=== PATIENT | female | born 1995 | race Hispanic/Latino ===

== ENCOUNTER 2021-06-27 15:20 | Day surgery (SDC) | payer BC, OTHER ==
--- OUTSIDE RECORDS SUMMARY | 2021-06-27 15:22 | XMS REPORT | Continuity of Care Document ---
:1995 Author Organization [facility] t Address [address] [place] [address] [address] [place] [address] Care Team Providers Name Role Phone Unavailable Unavailable Unavailable Problems This patient has no known problems. Allergies, Adverse Reactions, Alerts This patient has no known allergies or adverse reactions. Medications This patient has no known medications. Procedures This patient has no known procedures. Results This patient has no known results.
[2021-06-27 16:57] LABS: Absolute Lymphocytes (CBC) 1.9 K/uL (0.7-4.9); Basophils % 0.4 % (0-1.3); MPV 9.8 fL (7.6-11.3); RBC Red Blood Cell Count 4.85 M/uL (3.86-4.86)
[2021-06-27 17:06] LABS: Urine Appearance TURBID (Clear); Urine Blood 3+ (Negative); Urine Color Red (Yellow); Urine Glucose NEGATIVE (Negative); Urine Protein 2+ (Negative)
[2021-06-27 17:09] LABS: Urine Microscopic Reflex ORDER UMIC
--- NOTE | 2021-06-27 17:15 | RAD REPORT ---
EXAM DESCRIPTION: US - Transvaginal OB - 06/27/2021 5:05 pm CLINICAL HISTORY: VAGINAL BLEEDING COMPARISON: OB Complete dated 06/11/2017 FINDINGS: No IUP identified. The endometrial stripe measures 14 millimeters and is thickened. There is some fluid in the cervix and mild free fluid in the cul-de-sac. The right ovary is volume of 9.7 c c. The left ovary is volume of 6.1 cc. Vascular flow is present bilaterally. No adnexal masses. IMPRESSION: No IUP identified. Therefore, cannot exclude early normal , failed first trimes ter , or early ectopic. Bilateral ovarian blood flow is present.
[2021-06-27 17:37] LABS: Urine Bacteria >50 /HPF (<20); Urine RBC LOADED /HPF (NONE SEEN)
[2021-06-27 17:41] LABS: Urine Bilirubin 1+ (Negative)
[2021-06-27 17:42] LABS: BUN Blood Urea Nitrogen 8 mg/dL (7-18); Bicarbonate 25 mmol/L (21-32); Glucose Level 81 mg/dL (74-106); HCG, Quantitative 3299 mIU/mL (1-3); Potassium 3.8 mmol/L (3.5-5.1); Sodium Level 141 mmol/L (136-145)
--- NOTE | 2021-06-27 19:39 | EDPHYS ---
Physician Documentation [facility] Name: Rhoda Hunter Age: 25 yrs Sex: Female : 1995 Arrival Date: 06/27/2021 Time: 15:21 Bed Ultrasound Private MD: Rashid Liriano B ED Physician Alicia Bartlett HPI: 06/27 19:47 This 25 yrs old Female presents to ER via Wheelchair with complaints of jr8 Vaginal Bleeding, + Preg <12wks, Abdominal Cramping. 19:47 This is a 25-year-old female patient that presented to the emergency room for vaginal jr8 bleeding and cramping. Patient stated that she has had mild bleeding for couple weeks now that has not progressed. Mother patient stated that she should take a test which she did at home and was found to be positive. Patient started having increased pain to the right side the past couple days. Was worried that she may have ectopic so came in for further evaluation. This is patient's second . G2, L1. 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 - Social history:: Smoking status: Reported history of juuling and/or vaping. ROS: 19:47 Eyes: Negative for injury, pain, redness, and discharge, ENT: Negative for injury, jr8 pain, and discharge, Neck: Negative for injury, pain, and swelling, Cardiovascular: Negative for chest pain, palpitations, and edema, Respiratory: Negative for shortness of breath, cough, wheezing, and pleuritic chest pain, Back: Negative for injury and pain, MS/Extremity: Negative for injury and deformity, Skin: Negative for injury, rash, and discoloration, Neuro: Negative for headache, weakness, numbness, tingling, and seizure. 19:47 Abdomen/GI: Positive for abdominal cramps, Negative for nausea, vomiting, and diarrhea. 19:47 : Positive for vaginal bleeding, missed period. Exam: 19:47 Constitutional: This is a well developed, well nourished patient who is awake, alert, jr8 and in no acute distress. Cardiovascular: Regular rate and rhythm with a normal S1 and S2. No gallops, murmurs, or rubs. Normal PMI, no JVD. No pulse deficits. Respiratory: Lungs have equal breath sounds bilaterally, clear to auscultation and percussion. No rales, rhonchi or wheezes noted. No increased work of breathing, no retractions or nasal flaring. Abdomen/GI: Soft, non-tender, with normal bowel sounds. No distension or tympany. No guarding or rebound. No evidence of tenderness throughout. Back: No spinal tenderness. No costovertebral tenderness. Full range of motion. Skin: Warm, dry with normal turgor. Normal color with no rashes, no lesions, and no evidence of cellulitis. MS/ Extremity: Pulses equal, no cyanosis. Neurovascular intact. Full, normal range of motion. Neuro: Awake and alert, GCS 15, oriented to person, place, time, and situation. Cranial nerves II-XII grossly intact. Motor strength 5/5 in all extremities. Sensory grossly intact. Cerebellar exam normal. Normal gait. Vital Signs: 15:44 BP 130 / 58; Pulse 65; Resp 18; Temp 97.4(TE); Pulse Ox 100% on R/A; Weight 93.89 kg tw2 (R); Height 5 ft. 3 in. (160.02 cm) (R); Pain 4/10; 18:10 BP 125 / 77; Pulse 64; Resp 20; Pulse Ox 100% on R/A; kh1 15:44 Body Mass Index 36.67 (93.89 kg, 160.02 cm) tw2 MDM: 17:43 Patient medically screened. jr8 19:53 Data reviewed: vital signs, nurses notes, lab test result(s), radiologic studies, jr8 ultrasound. Data interpreted: Pulse oximetry: on room air is 100 %. Interpretation: normal. Counseling: I had a detailed discussion with the patient and/or guardian regarding: the historical points, exam findings, and any diagnostic results supporting the discharge/admit diagnosis, lab results, radiology results, the need for outpatient follow up, an OB/Gyne specialist. ED course: Discussed with patient that at this time there is no clear picture as to whether she is early IUP versus ectopic versus chemical versus complete AB. Need to trend her hCG over the next 48 hours. To see her OCEANOGRAPHER ASSISTANT on Friday for redraw if she cannot get into her OB GEN on Friday that she needs to come back to emergency room for reevaluation or redraw. In between that if her pain were to increase or she were to start hemorrhaging to come back immediately to the emergency room. Patient with a plan at this time will follow up and/or come back otherwise.. 06/27 16:25 Order name: UA bd 06/27 16:26 Order name: Abo/rh Typing; Complete Time: 18:39 kb 06/27 16:26 Order name: Basic Metabolic Panel; Complete Time: 18:39 kb 06/27 16:26 Order name: CBC with Diff; Complete Time: 18:39 kb 06/27 16:26 Order name: Quantitative Hcg; Complete Time: 18:39 kb 06/27 16:26 Order name: Urinalysis; Complete Time: 18:39 EDMS 06/27 16:00 Order name: Urine Dipstick-Ancillary (obtain specimen); Complete Time: 16:31 kb 06/27 16:00 Order name: Urine Test (obtain specimen); Complete Time: 16:31 kb 06/27 16:26 Order name: IV Saline Lock; Complete Time: 16:36 kb 06/27 16:26 Order name: Labs collected and sent; Complete Time: 16:36 kb 06/27 16:26 Order name: NPO; Complete Time: 16:31 kb 06/27 16:26 Order name: US Transvaginal Ob; Complete Time: 17:20 kb 06/27 17:11 Order name: Urine Microscopic Only; Complete Time: 18:39 EDMS 06/27 17:38 Order name: Urine Culture EDMS Administered Medications: No medications were administered Disposition: 06/28 07:05 Co-signature as Attending Physician, Alicia Bartlett MD I agree with the assessment and sp3 plan of care. Disposition Summary: 06/27/21 19:39 Discharge Ordered Location: Home jr8 Problem: new jr8 Symptoms: have improved jr8 Condition: Stable jr8 Diagnosis - Threatened jr8 Followup: jr8 - With: Rashid Liriano MD - When: 48 Hours - Reason: Recheck today's complaints, Continuance of care, Repeat Beta-HCG (48 Hours), Re-evaluation by your physician Discharge Instructions: - Discharge Summary Sheet jr8 - Ectopic jr8 - Threatened Miscarriage jr8 Forms: - Medication Reconciliation Form jr8 - Thank You Letter jr8 - Antibiotic Education jr8 - Prescription Opioid Use jr8 Prescriptions: - Macrobid 100 mg Oral Capsule - take 1 capsule by ORAL route every 12 hours for 7 days; 14 capsule; Refills: 0, jr8 Product Selection Permitted Signatures: Dispatcher [employer] EDMS Jolly Hernandez, RAGMAN-C RAGMAN-Rob Henley PA PA jr8 Evelin Dorman RN RN tw2 Alicia Bartlett MD MD sp3 Corrections: (The following items were deleted from the chart) 06/27 15:49 15:48 PMHx: None; tw2 tw2
--- NOTE | 2021-06-27 19:39 | ER ---
Nurse's Notes [facility] Name: Rhoda Hunter Age: 25 yrs Sex: Female : 1995 Arrival Date: 06/27/2021 Time: 15:21 Bed Ultrasound Private MD: Rashid Liriano B Diagnosis: Threatened Presentation: 06/27 15:44 Chief complaint: Patient states: on 05/20 i spotted. the test was negative. tw2 then on the i started to spot again but my cycles are super irregular and it is about 103 days on average. 06/15 i took a test and it was positive. my doctor couldn't see me until the . i got 's from them. every 3 or 4 days i take a test to see if i am still . i have been bleeding 3 weeks that started on the , really like bleeding and spotting. yesterday it was dark dark blood no clotting and it was real sticky. then today it is very sticky and its pink. the flow is still light. the cramping started yesterday. Coronavirus screen: At this time, the client does not indicate any symptoms associated with coronavirus-19. Ebola Screen: Patient denies travel to an Ebola-affected area in the 21 days before illness onset. Initial Sepsis Screen: Does the patient meet any 2 criteria? No. Patient's initial sepsis screen is negative. Does the patient have a suspected source of infection? No. Patient's initial sepsis screen is negative. Risk Assessment: Do you want to hurt yourself or someone else? Patient reports no desire to harm self or others. Onset of symptoms was June 27, 2021. 15:44 Acuity: JOEY 3 tw2 15:44 Method Of Arrival: Wheelchair tw2 Triage Assessment: 15:49 General: Appears in no apparent distress. uncomfortable, obese, well groomed, Behavior tw2 is calm, cooperative, appropriate for age. Pain: Complains of pain in abdomen. : Reports cramping, vaginal bleeding that is light flow. 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 - Social history:: Smoking status: Reported history of juuling and/or vaping. Screenin:17 Abuse screen: Denies threats or abuse. Nutritional screening: No deficits noted. kh1 Tuberculosis screening: No symptoms or risk factors identified. Fall Risk IV access (20 points). Assessment: 18:17 Obstetrical Assessment: General assessment: awake and alert, skin warm and dry, kh1 respirations even and unlabored. Vital Signs: 15:44 BP 130 / 58; Pulse 65; Resp 18; Temp 97.4(TE); Pulse Ox 100% on R/A; Weight 93.89 kg tw2 (R); Height 5 ft. 3 in. (160.02 cm) (R); Pain 4/10; 18:10 BP 125 / 77; Pulse 64; Resp 20; Pulse Ox 100% on R/A; kh1 15:44 Body Mass Index 36.67 (93.89 kg, 160.02 cm) tw2 Vitals: 19:58 Heart Tones . bs2 ED Course: 15:21 Patient arrived in ED. am2 15:21 Rashid Liriano MD is Private Physician. am2 15:48 Triage completed. tw2 15:49 Arm band placed on. tw2 16:33 Inserted saline lock: 20 gauge in right antecubital area, using aseptic technique. tw2 ,using aseptic technique. by CAIN Lama Blood collected. 17:08 Transvaginal Ob In Process Unspecified. EDMS 17:43 Rob Mac PA is PHCP. jr8 17:43 Alicia Bartlett MD is Attending Physician. jr8 18:10 Ernestina Rawls is Primary Nurse. kh1 18:17 Patient has correct armband on for positive identification. Placed in gown. Bed in low kh1 position. Call light in reach. Side rails up X 1. 18:17 No provider procedures requiring assistance completed. kh1 19:17 Primary Nurse role handed off by Ernestina Rawls mw2 19:38 Rashid Liriano MD is Referral Physician. jr8 19:58 Carnes, Ani, RN is Primary Nurse. bs2 19:58 IV discontinued, intact, bleeding controlled, No redness/swelling at site. bs2 Administered Medications: No medications were administered Outcome: 19:39 Discharge ordered by . cory 19:58 Discharged to home ambulatory. bs2 19:58 Condition: improved 19:58 Discharge instructions given to patient, significant other, Instructed on discharge instructions, follow up and referral plans. medication usage, Demonstrated understanding of instructions, follow-up care, medications, Prescriptions given X 1. 19:59 Patient left the ED. bs2 Signatures: Dispatcher [employer] EDMS Rob Mac PA PA jr8 Evelin Dorman, RN RN tw2 Sheila Payan MyKena 2 Ani Carnes, RN RN bs2 Ernestina Rawls [facility] Corrections: (The following items were deleted from the chart) 15:49 15:48 PMHx: None; tw2 tw2
[2021-06-29] MEDS ORDERED: OXYTOCIN 10 UNIT/ML ML IV ONE ×2 (15:24→15:46)
[2021-06-29] MEDS ORDERED: METHYLERGONOVINE 0.2MG/ML AMP IM ONE ×2 (15:24→15:26)
[2021-06-29] MEDS ORDERED: NA CIT/CITRIC AC 30 ML ORAL UDC ONE (15:24)
[2021-06-29] MEDS ORDERED: METOCLOPRAMIDE 10 MG/2mL INJ ONE (15:24)
[2021-06-29] MEDS ORDERED: CARBOPROST TROME 250 MCG/ML IM ONE (15:29)
[2021-06-29] MEDS ORDERED: SILVER NITRATE 1 APPL TOP ONE (15:29)
[2021-06-29] MEDS ORDERED: propofoL 200 MG/20 ML VIAL IV ONE (15:43)
[2021-06-29] MEDS ORDERED: FENTANYL CITR 100 MCG/2 ML ONE (15:43)
[2021-06-29] MEDS ORDERED: LIDOCAINE 2% MPF 5 ML VIAL ONE (15:43)
[2021-06-29] MEDS ORDERED: dexAMETHasone 10 MG/ML VIAL ONE (15:45)
[2021-06-29] MEDS ORDERED: SUCCINYLCHOLINE 20 MG/ML (10 ML) IV ONE (15:47)
[2021-06-29 15:48] LABS: Absolute Lymphocytes (CBC) 1.7 K/uL (0.7-4.9); Basophils % 0.6 % (0-1.3); Hematocrit 35.6 % (36.0-45.0); Lymphocytes % 18.8 % (15.3-44.8); MPV 9.6 fL (7.6-11.3); RBC Red Blood Cell Count 4.23 M/uL (3.86-4.86)
[2021-06-29] MEDS ORDERED: CARBOPROST TROME 250 MCG/ML IM SCH (16:00)
[2021-06-29] MEDS ORDERED: CLINDAMYCIN INJ 900 MG in NA CHLORIDE 0.9% 50 ML IV ONE (16:00)
[2021-06-29] MEDS ORDERED: Ringers Lactate 1,000 ML IV ONE (16:02)
[2021-06-29] MEDS ORDERED: KETOROLAC 30 MG/ML INJ ONE (16:23)
[2021-06-29 16:59] VITALS: BP 129/57; TEMP 97; O2SAT 100
--- NOTE | 2021-06-30 02:26 | OP ---
Surgeon: Rashid Liriano MD Indication: Rhoda Hunter is a 25-year-old 2, para 1, less than 12 weeks gestation, had been seen on Friday in the emergency room. Quantitative hCG at that time was 3299. She was cramping a nd bleeding. Diagnosed with a bladder infection, sent home with Macrobid. Came to my office today w ith same complaints, cramping and bleeding. Says she was passing fairly large clots. In the office, cervical os was in fact open. She was passing clots. There was no obvious tissue. Given the optio n of medical treatment with Cytotec every 4 hours for 6 doses and doxycycline. Says she did not want that and wished to go with surgical intervention, meaning D and C. Infection, blood loss, anestheti c complications, injury to bladder, bowel, ureter, postoperative complications, clots in legs, and pn eumonia discussed. The patient knows fully well, does not constitute all the possible problems that could occur during or following surgery. Procedure In Detail: Patient was taken to the surgery. General anesthetic performed. Time-out perf ormed. Tenaculum was placed on the anterior cervical lip. Traction was applied. Dilation was perfo rmed and significant dilation was already present. A 10 mm curved suction curette was used. Necroti c tissue was obtained, but a minimal amount of tissue. Sharp curettement followed by suction curette ment. Minimal bleeding. Estimated blood loss 50 mL or less. The patient was given 0.2 mg of Mether gine IM as well as IV drip Pitocin. She is Rh positive, will not need RhoGAM. Tolerated all procedu res well, transferred to the recovery room in good condition. Final Diagnosis: Incomplete , suction curettage and sharp curettement for uterine complete e vacuation. TRINIC/MODL Voice ID: [id number] Report ID: [id number]
--- NOTE | 2021-06-30 08:32 | DS ---
Date of Discharge: 06/29/2021 Hospital Course: The patient was seen in my office, given options of medical treatment versus surger y, chose surgery. Full preoperative counseling given. Taken to surgery. Suction curettage and kaz p curettement were performed with minimal amount of tissue. I think patient has already passed most of the tissue before she came to the surgical area. Rh positive, therefore no RhoGAM needed. I have written a prescription and it is waiting at the Pharmacy for Cytotec 100 mcg to be taken every 4 araceli rs for 6 doses, doxycycline to be taken 100 mg twice a day for 3 days for prophylaxis. Prior to the surgery, she was given 900 mg of Cleocin as she is allergic to penicillin. Final Diagnoses: Incomplete less than 12 weeks. Rh positive, no RhoGAM needed. Dilation a nd curettage performed. BURTON/ANASTACIO Voice ID: [id number] Report ID: [id number]
== END 2021-06-29 18:04 | disposition home or self-care (01) ==
LOC: ER 15:20
PROVIDERS: ATTEND Specialist
PROC: 10D17ZZ Extraction of Products of Conception, Retained, Via Natural or Artificial Opening (ICD-10-PCS; principal; 2021-06-29 15:00)
DX: O03.4 Incomplete spontaneous abortion without complication (principal); Z88.0 Allergy status to penicillin
CPT/HCPCS: 87088; 85025 ×2; 87086; 80048; 36415 ×2; 86900 ×2; 86850; 86901 ×2; 88305; 84702; 76817; 99284; 59812; J2704; J2210; J2765; J0330; J3010; J1100; J7120; 81003; 81015; 88307

== ENCOUNTER 2021-07-05 15:58 | Emergency (ER) | payer OTHER ==
--- NOTE | 2021-07-05 18:12 | ER ---
Nurse's Notes [facility] Name: Rhoda Hunter Age: 25 yrs Sex: Female : 1995 Arrival Date: 07/05/2021 Time: 16:00 Bed 14 Private MD: Diagnosis: Unspecified ectopic without intrauterine Presentation: 07/05 16:15 Chief complaint: Patient states: Vaginal US on the 06/29/21. Pt stated had an emergency vg1 DNC same day. Came in to do blood work today and HCG levels had increased. Pt had Ultrasound about 10 minutes ago and results stated 'Ectopic on Right Ovary'. Coronavirus screen: Vaccine status: Patient reports being unvaccinated. Ebola Screen: Patient negative for fever greater than or equal to 101.5 degrees Fahrenheit, and additional compatible Ebola Virus Disease symptoms. Initial Sepsis Screen: Does the patient meet any 2 criteria? No. Patient's initial sepsis screen is negative. Does the patient have a suspected source of infection? No. Patient's initial sepsis screen is negative. Risk Assessment: Do you want to hurt yourself or someone else? Patient reports no desire to harm self or others. Onset of symptoms was July 05, 2021. 16:15 Method Of Arrival: Ambulatory vg1 16:15 Acuity: JOEY 3 vg1 Triage Assessment: 16:20 General: Appears in no apparent distress. uncomfortable, Behavior is cooperative, vg1 crying. Pain: Denies pain. Historical: - Allergies: 16:20 PENICILLINS; vg1 16:20 Sulfa (Sulfonamide Antibiotics); vg1 - PMHx: 16:20 PCOS; vg1 - PSHx: 16:20 section; vg1 - Immunization history:: Adult Immunizations up to date, Client reports having NOT received the Covid vaccine. - Social history:: Smoking status: . Screenin:40 Abuse screen: Denies threats or abuse. Denies injuries from another. Nutritional aj2 screening: No deficits noted. Tuberculosis screening: No symptoms or risk factors identified. Fall Risk None identified. Assessment: 18:40 General: Appears in no apparent distress. comfortable, Behavior is calm, cooperative. aj2 Pain: Denies pain. Vital Signs: 16:15 BP 154 / 105; Pulse 78; Resp 16; Temp 99.0; Pulse Ox 100% ; Weight 93.89 kg; Height 5 vg1 ft. 3 in. (160.02 cm); Pain 0/10; 18:40 BP 130 / 90; Pulse 75; Resp 16; Temp 98.8; Pulse Ox 100% on R/A; aj2 16:15 Body Mass Index 36.67 (93.89 kg, 160.02 cm) vg1 ED Course: 16:00 Patient arrived in ED. mr 16:20 Triage completed. vg1 16:20 Arm band placed on. vg1 16:54 Low Joshua MD is Attending Physician. kdr 18:10 Rashid Liriano MD is Referral Physician. kdr 18:40 Neda Quinones is Primary Nurse. aj2 18:40 No apparent distress. Resting quietly. aj2 18:40 Patient has correct armband on for positive identification. aj2 18:40 No provider procedures requiring assistance completed. Patient did not have IV access aj2 during this emergency room visit. Administered Medications: 19:15 Drug: Methotrexate 75 mg Route: IM; Site: right vastus lateralis; aj2 Outcome: 18:12 Discharge ordered by . kdr 19:16 Discharged to home aj2 19:16 Discharged to home ambulatory. 19:16 Condition: stable 19:16 Discharge instructions given to patient, Instructed on discharge instructions, follow up and referral plans. Demonstrated understanding of 19:17 Patient left the ED. aj2 Signatures: Low Joshua MD MD [facility] Esteban, Zoila Scott, Deanna, RN RN vg1 Neda Quinones aj2 Corrections: (The following items were deleted from the chart) 18:52 18:45 Methotrexate 75 mg IM in left deltoid aj2 aj2
--- NOTE | 2021-07-05 18:12 | EDPHYS ---
Physician Documentation [facility] Name: Rhoda Hunter Age: 25 yrs Sex: Female : 1995 Arrival Date: 07/05/2021 Time: 16:00 Bed 14 Private MD: ED Physician Low Joshua HPI: 07/05 18:39 This 25 yrs old Female presents to ER via Ambulatory with complaints of kdr Ectopic . 18:39 Patient was seen by Dr. Liriano last week for possible ectopic. At that time she was kdr having significant bleeding and was subsequently taken to the OR for a D\T\C. Subsequently on a recheck of her beta hCG, she was noted to have an increasing value. This led Dr. Liriano to further investigate with an ultrasound at which point today it was discovered that she has an ectopic in her right fallopian tube. The details can be seen elsewhere in her hospital chart. At that time Dr. Liriano discussed the findings with the patient and suggested that she receive methotrexate to terminate the . Patient was agreeable to this and presented to the ED for administration of the methotrexate. At the time of my evaluation the patient appeared healthy and was not toxic or unstable in any way. She did not appear acutely ill and had no focal complaints.. Onset: The symptoms/episode began/occurred gradually, 1 week(s) ago. Severity of symptoms: At their worst the symptoms were mild moderate just prior to arrival, in the emergency department the symptoms have resolved. The patient has not experienced similar symptoms in the past. The patient has been recently seen by a physician: the patient's primary care provider. Historical: - Allergies: 16:20 PENICILLINS; vg1 16:20 Sulfa (Sulfonamide Antibiotics); vg1 - PMHx: 16:20 PCOS; vg1 - PSHx: 16:20 section; vg1 - Immunization history:: Adult Immunizations up to date, Client reports having NOT received the Covid vaccine. - Social history:: Smoking status: . ROS: 18:39 Constitutional: Negative for fever, chills, and weight loss, Eyes: Negative for injury, kdr pain, redness, and discharge, ENT: Negative for injury, pain, and discharge, Neck: Negative for injury, pain, and swelling, Cardiovascular: Negative for chest pain, palpitations, and edema, Respiratory: Negative for shortness of breath, cough, wheezing, and pleuritic chest pain, Abdomen/GI: Negative for abdominal pain, nausea, vomiting, diarrhea, and constipation, Back: Negative for injury and pain, MS/Extremity: Negative for injury and deformity, Skin: Negative for injury, rash, and discoloration, Neuro: Negative for headache, weakness, numbness, tingling, and seizure activity. Psych: Negative for depression, anxiety, suicide ideation, homicidal ideation, and hallucinations, Allergy/Immunology: Negative for hives, rash, and allergies, Endocrine: Negative for neck swelling, polydipsia, polyuria, polyphagia, and marked weight changes, Hematologic/Lymphatic: Negative for swollen nodes, abnormal bleeding, and unusual bruising. 18:39 : Positive for Concern for ectopic in the right fallopian tube as previously demonstrated on an ultrasound today. Exam: 18:39 Constitutional: This is a well developed, well nourished patient who is awake, alert, kdr and in no acute distress. Head/Face: Normocephalic, atraumatic. Eyes: Pupils equal round and reactive to light, extra-ocular motions intact. Lids and lashes normal. Conjunctiva and sclera are non-icteric and not injected. Cornea within normal limits. Periorbital areas with no swelling, redness, or edema. Neck: Trachea midline, no thyromegaly or masses palpated, and no cervical lymphadenopathy. Supple, full range of motion without nuchal rigidity, or vertebral point tenderness. No Meningismus. Chest/axilla: Normal chest wall appearance and motion. Nontender with no deformity. No lesions are appreciated. Cardiovascular: Regular rate and rhythm with a normal S1 and S2. No gallops, murmurs, or rubs. Normal PMI, no JVD. No pulse deficits. Respiratory: Lungs have equal breath sounds bilaterally, clear to auscultation and percussion. No rales, rhonchi or wheezes noted. No increased work of breathing, no retractions or nasal flaring. Abdomen/GI: Soft, non-tender, with normal bowel sounds. No distension or tympany. No guarding or rebound. No evidence of tenderness throughout. Back: No spinal tenderness. No costovertebral tenderness. Full range of motion. Skin: Warm, dry with normal turgor. Normal color with no rashes, no lesions, and no evidence of cellulitis. MS/ Extremity: Pulses equal, no cyanosis. Neurovascular intact. Full, normal range of motion. Neuro: Awake and alert, GCS 15, oriented to person, place, time, and situation. Cranial nerves II-XII grossly intact. Motor strength 5/5 in all extremities. Sensory grossly intact. Cerebellar exam normal. Normal gait. Psych: Awake, alert, with orientation to person, place and time. Behavior, mood, and affect are within normal limits. Vital Signs: 16:15 BP 154 / 105; Pulse 78; Resp 16; Temp 99.0; Pulse Ox 100% ; Weight 93.89 kg; Height 5 vg1 ft. 3 in. (160.02 cm); Pain 0/10; 18:40 BP 130 / 90; Pulse 75; Resp 16; Temp 98.8; Pulse Ox 100% on R/A; aj2 16:15 Body Mass Index 36.67 (93.89 kg, 160.02 cm) vg1 MDM: 18:12 Patient medically screened. kdr 18:39 Data reviewed: vital signs, nurses notes, lab test result(s), radiologic studies. kdr Counseling: I had a detailed discussion with the patient and/or guardian regarding: the historical points, exam findings, and any diagnostic results supporting the discharge/admit diagnosis, lab results, radiology results, the need for outpatient follow up. Physician consultation: Rashid Liriano MD regarding consult, patient's condition, outpatient follow-up, in 2-3 days, and will see patient in office, in 2-3 days, next week, Dr. Liriano asked that the patient present back to his office on Friday for repeat beta hCG. Administered Medications: 19:15 Drug: Methotrexate 75 mg Route: IM; Site: right vastus lateralis; aj2 Disposition Summary: 07/05/21 18:12 Discharge Ordered Location: Home kdr Problem: new kdr Symptoms: have improved kdr Condition: Stable kdr Diagnosis - Unspecified ectopic without intrauterine kdr Followup: kdr - With: Rashid Liriano MD - When: Follow-up on Friday with Dr. Liriano for repeat evaluation of your quantitative beta-hCG - Reason: If symptoms return, Further diagnostic work-up, Recheck today's complaints, Continuance of care, Re-evaluation by your physician Discharge Instructions: - Discharge Summary Sheet kdr - Ectopic kdr - Methotrexate Treatment for an Ectopic kdr Forms: - Medication Reconciliation Form kdr - Thank You Letter kdr Prescriptions: - acetaminophen-codeine 300-15 mg Oral tablet - take 1 tablet by ORAL route every 6 hours; 12 tablet; Refills: 0, Product kdr Selection Permitted - Zofran 4 mg Oral Tablet - take 1 tablet by ORAL route every 12 hours As needed; 6 tablet; Refills: 0, kdr Product Selection Permitted Signatures: Dispatcher [employer] EDMS Low Joshua MD MD kdr Deanna Scott RN RN vg1 Neda Quinones2 Corrections: (The following items were deleted from the chart) 16:30 16:18 1st Trimest Single 1st Fetus+US.RAD.RUBINA ordered. EDHI EDMS
[2021-07-05 19:57] VITALS: O2SAT 100
[2021-07-05 19:58] VITALS: BP 130/90; TEMP 98.8
== END 2021-07-05 19:17 | disposition home or self-care (01) ==
LOC: ER 15:58
DX: O00.101 Right tubal pregnancy without intrauterine pregnancy (principal); Z88.0 Allergy status to penicillin; Z88.2 Allergy status to sulfonamides
CPT/HCPCS: 96372; 99283

== ENCOUNTER 2021-08-08 10:38 | Emergency (ER) | payer OTHER ==
[2021-08-08 11:30] LABS: Urine Specific Gravity/Preg 1.015 (1.005-1.030)
[2021-08-08 11:48] LABS: Basophils % 0.5 % (0-1.3); Hematocrit 39.4 % (36.0-45.0); MPV 9.9 fL (7.6-11.3); RBC Red Blood Cell Count 4.64 M/uL (3.86-4.86)
[2021-08-08 12:05] LABS: ALT/SGPT 45 U/L (12-78); AST/SGOT 18 U/L (15-37); Alkaline Phosphatase 80 U/L (45-117); BUN Blood Urea Nitrogen 8 mg/dL (7-18); Bicarbonate 26 mmol/L (21-32); Bilirubin Direct 0.1 mg/dL (0-0.2); Bilirubin Total 0.5 mg/dL (0.2-1.0); Glucose Level 104 mg/dL (74-106); Lipase 62 U/L (73-393); Potassium 3.7 mmol/L (3.5-5.1); Protein, Total 7.9 g/dL (6.4-8.2); Sodium Level 142 mmol/L (136-145)
--- NOTE | 2021-08-08 13:15 | RAD REPORT ---
EXAM DESCRIPTION: CTAbdomen Pelvis W Contrast - 08/08/2021 12:26 pm CLINICAL HISTORY: ABD PAIN COMPARISON: No comparisons TECHNIQUE: CT of the abdomen and pelvis was performed. All CT scans are performed using dose optimization technique as appropriate and may include automated exposure control or mA/KV adjustment according to patient size. FINDINGS: Lower chest: No acute abnormality. Liver: No acute abnormality or suspicious lesions. Biliary: Cholelithiasis. Mild gallbladder wall thickening is present. No significant pericholecystic inflammatory changes, however. Stomach: No significant focal abnormality. Duodenum: No significant focal abnormality. Pancreas: No significant abnormality. Spleen: No significant abnormality. Adrenal: No suspicious lesions. Kidney/ureter: No hydronephrosis. No renal calculi. Retroperitoneum: No retroperitoneal adenopathy. Vascular: No aneurysm. Bowel: No significant focal abnormality. Normal appendix. Peritoneum: No ascites or free air. Bladder: Grossly unremarkable. Reproductive: No adnexal masses. Bones: No acute fracture. Other: n/a IMPRESSION: Cholelithiasis with mild gallbladder wall thickening. No pericholecystic inflammatory ch anges. Cannot, however, exclude early or mild cholecystitis. Consider ultrasound for further evaluati on. No other acute findings. The appendix is normal.
--- NOTE | 2021-08-08 13:50 | EDPHYS ---
Physician Documentation [facility] Name: Rhoda Hunter Age: 25 yrs Sex: Female : 1995 Arrival Date: 08/08/2021 Time: 10:41 Bed 20 Private MD: ED Physician Low Joshua HPI: 08/08 11:32 This 25 yrs old Female presents to ER via Ambulatory with complaints of jr8 Abdominal Pain - RLQ. 11:38 The patient presents with abdominal pain right lower quadrant. Onset: The jr8 symptoms/episode began/occurred acutely, this morning, today. The symptoms radiate to the right flank. Associated signs and symptoms: Pertinent positives: nausea. The symptoms are described as stabbing. Modifying factors: The symptoms are alleviated by nothing, the symptoms are aggravated by nothing. Severity of pain: At its worst the pain was moderate in the emergency department the pain is unchanged. The patient has not experienced similar symptoms in the past. The patient has not recently seen a physician. 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 - Social history:: Smoking status: Reported history of juuling and/or vaping. Patient uses THC. ROS: 11:38 Eyes: Negative for injury, pain, redness, and discharge, ENT: Negative for injury, jr8 pain, and discharge, Neck: Negative for injury, pain, and swelling, Cardiovascular: Negative for chest pain, palpitations, and edema, Respiratory: Negative for shortness of breath, cough, wheezing, and pleuritic chest pain, Back: Negative for injury and pain, MS/Extremity: Negative for injury and deformity, Skin: Negative for injury, rash, and discoloration, Neuro: Negative for headache, weakness, numbness, tingling, and seizure. 11:38 Abdomen/GI: Positive for abdominal pain, nausea, Negative for vomiting, diarrhea, abdominal cramps, abdominal distension, hematemesis, black/tarry stool, rectal pain, rectal bleeding, bowel incontinence, flatulence. Exam: 11:38 Eyes: Pupils equal round and reactive to light, extra-ocular motions intact. Lids and jr8 lashes normal. Conjunctiva and sclera are non-icteric and not injected. Cornea within normal limits. Periorbital areas with no swelling, redness, or edema. ENT: Nares patent. No nasal discharge, no septal abnormalities noted. Tympanic membranes are normal and external auditory canals are clear. Oropharynx with no redness, swelling, or masses, exudates, or evidence of obstruction, uvula midline. Mucous membranes moist. Neck: Trachea midline, no thyromegaly or masses palpated, and no cervical lymphadenopathy. Supple, full range of motion without nuchal rigidity, or vertebral point tenderness. No Meningismus. Cardiovascular: Regular rate and rhythm with a normal S1 and S2. No gallops, murmurs, or rubs. Normal PMI, no JVD. No pulse deficits. Respiratory: Lungs have equal breath sounds bilaterally, clear to auscultation and percussion. No rales, rhonchi or wheezes noted. No increased work of breathing, no retractions or nasal flaring. Back: No spinal tenderness. No costovertebral tenderness. Full range of motion. Skin: Warm, dry with normal turgor. Normal color with no rashes, no lesions, and no evidence of cellulitis. MS/ Extremity: Pulses equal, no cyanosis. Neurovascular intact. Full, normal range of motion. Neuro: Awake and alert, GCS 15, oriented to person, place, time, and situation. Cranial nerves II-XII grossly intact. Motor strength 5/5 in all extremities. Sensory grossly intact. Cerebellar exam normal. Normal gait. 11:38 Abdomen/GI: Inspection: abdomen appears normal, Bowel sounds: active, all quadrants, Palpation: soft, in all quadrants, mild abdominal tenderness, in the anterior aspect of right lateral abdomen and right lower quadrant, mass, is not appreciated, rebound tenderness, is not appreciated, voluntary guarding, is not appreciated, involuntary guarding, is not appreciated, no appreciated organomegaly, Indicators: McBurney's point is not tender, Valderrama's sign is negative, Rovsing's sign is negative. Vital Signs: 10:44 BP 159 / 91; Pulse 100; Resp 19; Temp 98.3(TE); Pulse Ox 100% on R/A; Weight 92.08 kg; ap3 Height 5 ft. 3 in. (160.02 cm); Pain 5/10; 11:38 BP 150 / 73; Pulse 54; Resp 17; Pulse Ox 97% on R/A; tw2 12:02 BP 137 / 74; Pulse 59; Resp 17; Pulse Ox 99% on R/A; tw2 13:08 BP 134 / 82; Pulse 63; Resp 17; Pulse Ox 100% on R/A; tw2 13:56 BP 145 / 89; Pulse 54; Resp 17; Pulse Ox 100% on R/A; tw2 10:44 Body Mass Index 35.96 (92.08 kg, 160.02 cm) ap3 MDM: 10:52 Patient medically screened. jr8 13:48 Data reviewed: vital signs, nurses notes, lab test result(s), radiologic studies, CT jr8 scan. Data interpreted: Pulse oximetry: on room air is 100 %. Interpretation: normal. Counseling: I had a detailed discussion with the patient and/or guardian regarding: the historical points, exam findings, and any diagnostic results supporting the discharge/admit diagnosis, lab results, radiology results, the need for outpatient follow up, a family practitioner, to return to the emergency department if symptoms worsen or persist or if there are any questions or concerns that arise at home. ED course: Discussed with patient that her labs do not show any acute findings. The CT did not reveal anything acute where her pain is which was the lower right quadrant. Incidental finding of cholelithiasis noted. Reevaluated her abdomen the patient has absolutely no abdominal tenderness or Valderrama sign in the right upper quadrant. Recommend that she just closely watch to see if the pain worsens or other symptoms were to arise. If so to come back to the emergency room for further evaluation. Patient good with this at this time.. 08/08 11:21 Order name: Urine --Ancillary (enter results); Complete Time: 11:32 bd 08/08 11:27 Order name: Basic Metabolic Panel; Complete Time: 12:12 jr8 08/08 11:27 Order name: CBC with Diff; Complete Time: 11:51 jr8 08/08 11:27 Order name: Hepatic Function; Complete Time: 12:12 jr8 08/08 11:27 Order name: Lipase; Complete Time: 12:12 jr8 08/08 10:53 Order name: Urine Dipstick-Ancillary (obtain specimen); Complete Time: 11:20 jr8 08/08 10:53 Order name: Urine Test (obtain specimen); Complete Time: 11:20 jr8 08/08 11:27 Order name: IV Saline Lock; Complete Time: 11:38 jr8 08/08 11:27 Order name: Labs collected and sent; Complete Time: 11:38 jr8 08/08 11:53 Order name: CT Abd/Pelvis - IV Contrast Only; Complete Time: 13:41 jr8 Administered Medications: No medications were administered Disposition: 08/09 00:47 Co-signature as Attending Physician, Low Joshua MD I agree with the assessment and kdr plan of care. Disposition Summary: 08/08/21 13:50 Discharge Ordered Location: Home jr Problem: new jr8 Symptoms: have improved jr8 Condition: Stable jr8 Diagnosis - Lower abdominal pain, unspecified jr8 Followup: jr8 - With: Private Physician - When: 2 - 3 days - Reason: Recheck today's complaints, Continuance of care, Re-evaluation by your physician Discharge Instructions: - Abdominal Pain, Adult jr8 - Discharge Summary Sheet tw2 Forms: - Medication Reconciliation Form jr8 - Thank You Letter jr8 - Work release form tw2 - Antibiotic Education jr8 - Prescription Opioid Use jr8 - Family Work Release tw2 Prescriptions: - dicyclomine 20 mg Oral tablet - take 1 tablet by ORAL route 3 times per day As needed; 20 tablet; Refills: 0, jr8 Product Selection Permitted - Zofran 4 mg Oral Tablet - take 1 tablet by ORAL route every 12 hours As needed; 20 tablet; Refills: 0, jr8 Product Selection Permitted Signatures: Dispatcher [employer] EDDC Low Joshua MD MD kdr Roszak, Josh, PA PA jr8 Sheila Blas RN RN ap3
--- NOTE | 2021-08-08 13:50 | ER ---
Nurse's Notes [facility] Name: Rhoda Hunter Age: 25 yrs Sex: Female : 1995 Arrival Date: 08/08/2021 Time: 10:41 Bed 20 Private MD: Diagnosis: Lower abdominal pain, unspecified Presentation: 08/08 10:44 Chief complaint: Patient states: that she began having right side abdominal pain which ap3 began at 0100. Patient states she was woken up from the pain. She reports she has had this feeling previously when she was dx with a UTI. Coronavirus screen: At this time, the client does not indicate any symptoms associated with coronavirus-19. Ebola Screen: No symptoms or risks identified at this time. Initial Sepsis Screen: Does the patient meet any 2 criteria? HR > 90 bpm. No. Patient's initial sepsis screen is negative. Does the patient have a suspected source of infection? No. Patient's initial sepsis screen is negative. Risk Assessment: Do you want to hurt yourself or someone else? Patient reports no desire to harm self or others. Onset of symptoms was August 08, 2021 at 01:00. 10:44 Method Of Arrival: Ambulatory ap3 10:44 Acuity: JOEY 3 ap3 10:48 Chief complaint: Patient reports recently being dx with ectopic and had a D\\T\\C ap3 with methotrexate at the end of June. Triage Assessment: 10:47 General: Appears uncomfortable, Behavior is restless. Pain: Complains of pain in right ap3 upper quadrant and right lower quadrant Pain does not radiate. Pain currently is 5 out of 10 on a pain scale. at worst was 10 out of 10 on a pain scale. Aggravated by laying down. GI: Abdomen is round. 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 - Social history:: Smoking status: Reported history of juuling and/or vaping. Patient uses THC. Screenin:53 Abuse screen: Denies threats or abuse. Nutritional screening: No deficits noted. tw2 Tuberculosis screening: No symptoms or risk factors identified. Fall Risk None identified. Assessment: 10:58 Reassessment: patient provided specimen container and education on proper urine ap3 collection. patient verbalized understanding. 11:03 Reassessment: when asked if pt can give urine sample pt states "maybe in like 5 tw2 minutes". specimen cup given. pt v/u/. 11:04 General: Appears in no apparent distress. Behavior is calm, cooperative, appropriate tw2 for age. Pain: Complains of pain in right lower quadrant and right upper quadrant. Neuro: Level of Consciousness is awake, alert, obeys commands, Oriented to person, place, time, situation. Cardiovascular: Patient's skin is warm and dry. Respiratory: Airway is patent Respiratory effort is even, unlabored, Respiratory pattern is regular, symmetrical. GI: Bowel sounds n/a Abd is soft X 4 quads Reports lower abdominal pain, upper abdominal pain. 12:02 Reassessment: Patient appears in no apparent distress at this time. No changes from tw2 previously documented assessment. Patient and/or family updated on plan of care and expected duration. Pain level reassessed. Patient is alert, oriented x 3, equal unlabored respirations, skin warm/dry/pink. 12:30 Reassessment: Patient appears in no apparent distress at this time. pt back from tw2 imaging at this time. 13:08 Reassessment: Patient appears in no apparent distress at this time. No changes from tw2 previously documented assessment. Patient and/or family updated on plan of care and expected duration. Pain level reassessed. Patient is alert, oriented x 3, equal unlabored respirations, skin warm/dry/pink. 14:04 Reassessment: Patient appears in no apparent distress at this time. No changes from tw2 previously documented assessment. Patient and/or family updated on plan of care and expected duration. Pain level reassessed. Patient is alert, oriented x 3, equal unlabored respirations, skin warm/dry/pink. Vital Signs: 10:44 BP 159 / 91; Pulse 100; Resp 19; Temp 98.3(TE); Pulse Ox 100% on R/A; Weight 92.08 kg; ap3 Height 5 ft. 3 in. (160.02 cm); Pain 5/10; 11:38 BP 150 / 73; Pulse 54; Resp 17; Pulse Ox 97% on R/A; tw2 12:02 BP 137 / 74; Pulse 59; Resp 17; Pulse Ox 99% on R/A; tw2 13:08 BP 134 / 82; Pulse 63; Resp 17; Pulse Ox 100% on R/A; tw2 13:56 BP 145 / 89; Pulse 54; Resp 17; Pulse Ox 100% on R/A; tw2 10:44 Body Mass Index 35.96 (92.08 kg, 160.02 cm) ap3 ED Course: 10:41 Patient arrived in ED. am2 10:42 Rob Mac PA is PHCP. jr8 10:42 Low Joshua MD is Attending Physician. jr8 10:46 Triage completed. ap3 10:49 Arm band placed on right wrist. ap3 10:50 Bed in low position. Call light in reach. tw2 10:52 Evelin Dorman, CAIN is Primary Nurse. tw2 11:38 Inserted saline lock: 20 gauge in right antecubital area, using aseptic technique. tw2 ,using aseptic technique. by [facility] Blood collected. 12:25 CT Abd/Pelvis - IV Contrast Only In Process Unspecified. EDMS 14:03 No provider procedures requiring assistance completed. IV discontinued, intact, tw2 bleeding controlled, No redness/swelling at site. Pressure dressing applied. Administered Medications: No medications were administered Outcome: 13:50 Discharge ordered by . jr8 14:03 Discharged to home ambulatory, with significant other. tw2 14:03 Condition: stable 14:03 Discharge instructions given to patient, significant other, Instructed on discharge instructions, follow up and referral plans. no drinking with medication, no driving heavy equipment, medication usage, Demonstrated understanding of instructions, follow-up care, medications, Prescriptions given X 2. 14:04 Patient left the ED. tw2 Signatures: Dispatcher [employer] EDMS Rob Mac PA PA jr8 Evelin Dorman, CAIN RN tw2 Sheila Payan am2 Sheila Blas RN RN ap3 Corrections: (The following items were deleted from the chart) 11:06 11:04 GI: Bowel sounds n/a Abd is soft X 4 quads tw2 tw2
[2021-08-08 14:54] VITALS: TEMP 98.3
[2021-08-08 14:59] VITALS: O2SAT 100
[2021-08-08 15:00] VITALS: BP 145/89
== END 2021-08-08 14:04 | disposition home or self-care (01) ==
LOC: ER 10:38
DX: R10.31 Right lower quadrant pain (principal); E28.2 Polycystic ovarian syndrome; Z88.0 Allergy status to penicillin; Z88.2 Allergy status to sulfonamides
CPT/HCPCS: 85025; 80048; 36415; 81025; 80076; 83690; 74177; Q9967

== ENCOUNTER 2022-09-04 10:59 | Inpatient (IN) | payer OTHER ==
--- OUTSIDE RECORDS SUMMARY | 2022-09-04 11:03 | XMS REPORT | Continuity of Care Document ---
:1995 Author Organization [facility] t Address [address] [place] [address] [address] [place] [address] Care Team Providers Name Role Phone Mary Ann Garcia MD Attending Clinician MARY ANN GARCIA Attending Clinician Unavailable 2, [facility] Attending Clinician Unavailable Payers Payer Name Policy Type Policy Number Effective Date Expiration Date S ource Problems Condition Condition Condition Status Onset Resolution Last Treating Co mments Source Name Details Category Date Date Treatment Clinician Date Obesity Obesity Disease Active Univers (BMI (BMI 4-29 ity of 30-39.9) 30-39.9) 00:00: [address] Allergies, Adverse Reactions, Alerts Allergy Allergy Status Severity Reaction(s) Onset Inactive Treating Comm ents Source Name Type Date Date Clinician NO KNOWN Drug Active Univers ALLERGIE Class ity of S [facility] Social History Social Habit Start Date Stop Date Quantity Comments Source History of tobacco Cigarette Smoker [facility] use [facility] ASSERTION [facility] Sex Assigned At Universit y of [facility] Exposure to Not sure [facility] SARS-CoV-2 (event) [facility] Cigarettes smoked 2020-02-16 2020-02-16 Univers ity of current (pack per 00:00:00 00:00:00 ) - Reported Branch Cigarette 2020-02-16 2020-02-16 University of pack-years 00:00:00 00:00:00 [facility] Alcohol intake 2020-02-16 2020-02-16 University of 00:00:00 00:00:00 [facility] Smoking Status Start Date Stop Date Source Former smoker 2020-02-16 00:00:00 2020-02-16 00:00:00 Universi [facility] Medications Ordered Filled Start Stop Current Ordering Indication Dosage Frequency Signature Comments Components Source Medication Medication Date Date Medication? Clinician (SIG) Name Name Yes 2{tbl} Take 2 Unive rs vits62/FA/o 4-29 tablets by it y of m3/dha/epa 15:37: mouth [place] ( 42 daily. Medical GUMMY ORAL) Branch Yes 2{tbl} Take 2 Unive rs vits62/FA/o 4-29 tablets by it y of m3/dha/epa 15:37: mouth [place] ( 42 daily. Medical GUMMY ORAL) Branch Yes 2{tbl} Take 2 Unive rs vits62/FA/o 4-29 tablets by it y of m3/dha/epa 15:37: mouth [place] ( 42 daily. Medical GUMMY ORAL) Branch Vital Signs Vital Name Observation Time Observation Value Comments Source Body height 2020-02-16 15:37:00 160 cm [facility] Body weight 2020-02-16 15:37:00 89.812 kg [facility] BMI 2020-02-16 15:37:00 35.07 kg/m2 [facility] Procedures This patient has no known procedures. 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, [facility] [id number] Univers 09:29:46 09:44:46 Visit Mary Ann [id number] [facility] [id number] [phone] Va dical nal 353 [facility] 2020-02-16 2020-02-16 Outpatient R MARY ANN GARCIA [facility] [id number] Univers 10:00:00 15:10:42 ity of [facility] 2020-02-16 2020-02-16 Telemedici Mary Ann Garcia [facility] [id number] [facility] 08:19:50 15:10:42 ne Visit [place] [id number] ity [facility] [id number] Helen hernandez Professio [phone] [address] 2020-02-14 2020-02-14 Outpatient R MARY ANN GARCIA [facility] [id number] [facility] 14:15:00 14:15:00 ity of [facility] Results This patient has no known results.
[2022-09-04] MEDS ORDERED: ONDANSETRON 4 MG/2 ML VIAL ONE (12:32)
[2022-09-04] MEDS ORDERED: DICYCLOMINE HCL 20 MG/2 ML AMP IM ONE (12:33)
[2022-09-04] MEDS ORDERED: FAMOTIDINE 20 MG/2 ML VIAL IV ONE (12:33)
[2022-09-04] MEDS ORDERED: NA CHLORIDE 0.9% 1,000 ML ONE (12:33)
--- NOTE | 2022-09-04 12:44 | RAD REPORT ---
EXAM DESCRIPTION: US - Abdomen Exam Limited - 09/04/2022 12:39 pm CLINICAL HISTORY: upper abdomen pain COMPARISON: No comparisons FINDINGS: The gallbladder demonstrates multiple shadowing gallstones. No pericholecystic fluid or ga llbladder wall thickening. The common bile duct is normal measuring 4 mm. The liver demonstrates no findings of intrahepatic biliary dilatation. IMPRESSION: Cholelithiasis.
[2022-09-04 13:01] LABS: Hematocrit 39.2 % (36.0-45.0); Lymphocytes % 10.7 % (15.3-44.8); MCV 83.9 fL (80-100); MPV 10.2 fL (7.6-11.3); RBC Red Blood Cell Count 4.67 M/uL (3.86-4.86)
[2022-09-04 13:13] LABS: Urine Blood Negative (Negative); Urine Glucose Negative (Negative); Urine Protein Negative (Negative); Urine pH 5.5 (5.0-7.0)
[2022-09-04 13:15] LABS: Albumin 3.8 g/dL (3.4-5.0); Bilirubin Total 0.7 mg/dL (0.2-1.0); Potassium 3.2 mmol/L (3.5-5.1); Protein, Total 7.6 g/dL (6.4-8.2)
[2022-09-04 13:22] LABS: Urine Mucus 2+ /HPF (None Seen); Urine RBC <5 /HPF (None Seen)
--- NOTE | 2022-09-04 18:02 | RAD REPORT ---
EXAM DESCRIPTION: MRI - Cholangiogram - 09/04/2022 5:50 pm CLINICAL HISTORY: abd pain Right upper quadrant abdominal pain COMPARISON: Abdomen Exam Limited dated 09/04/2022 FINDINGS: Three-dimensional MRCP was performed using maximum intensity projection reconstruction on the same work station. No intrahepatic biliary tree dilatation is seen. The common bile duct is normal caliber without evide nce of retained stone, stricture or mass. The pancreatic duct is not pathologically dilated. Multi stone cholelithiasis. Limited T2 sequences through the abdomen demonstrates no bulky adenopathy, significant free fluid or abscess. IMPRESSION: Cholelithiasis. No significant biliary tree abnormality.
--- NOTE | 2022-09-04 18:23 | EDPHYS ---
Physician Documentation [facility] Name: Rhoda Hunter Age: 27 yrs Sex: Female : 1995 Arrival Date: 09/04/2022 Time: 11:01 Bed 20 Private MD: ED Physician Javier Taylor HPI: 09/04 12:20 This 27 yrs old Female presents to ER via Ambulatory with complaints of cp Epigastric Pain. 12:20 The patient presents with abdominal pain in the epigastric area, in the upper abdomen. cp 12:20 Onset: The symptoms/episode began/occurred 2 day(s) ago. cp 12:20 Associated signs and symptoms: Pertinent positives: nausea and vomiting, anorexia, cp dizzy, Pertinent negatives: blood in stools, constipation, diarrhea, dysuria, fever, vomiting blood. The symptoms are described as constant. Severity of pain: in the emergency department the pain is unchanged despite home interventions. 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 - Social history:: Smoking status: Reported history of juuling and/or vaping. Patient denies any tobacco usage or history of. ROS: 12:25 Constitutional: Negative for body aches, chills, fever, poor PO intake. cp 12:25 Eyes: Negative for injury, pain, redness, and discharge. cp 12:25 ENT: Negative for drainage from ear(s), ear pain, sore throat, difficulty swallowing, difficulty handling secretions. 12:25 Cardiovascular: Positive for chest pain, Negative for edema, palpitations. 12:25 Respiratory: Negative for cough, shortness of breath, wheezing. 12:25 Abdomen/GI: Positive for abdominal pain, nausea and vomiting, anorexia, Negative for diarrhea, constipation, hematemesis. 12:25 Back: Negative for injury or acute deformity, decreased range of motion. 12:25 : Negative for urinary symptoms. 12:25 Neuro: Positive for dizziness, Negative for altered mental status, headache, weakness. 12:25 All other systems are negative. Exam: 12:30 Constitutional: The patient appears in no acute distress, alert, awake, cp non-diaphoretic, non-toxic, well developed, well nourished. 12:30 Head/Face: Normocephalic, atraumatic. cp 12:30 Eyes: Periorbital structures: appear normal, Conjunctiva: normal, no exudate, no injection, Sclera: no appreciated abnormality, Lids and lashes: appear normal, bilaterally. 12:30 ENT: External ear(s): are unremarkable, Nose: is normal, Mouth: Lips: moist, Oral mucosa: pink and intact, moist, Posterior pharynx: Airway: no evidence of obstruction, patent, erythema, is not appreciated, exudate, is not appreciated. 12:30 Chest/axilla: Inspection: normal, Palpation: is normal, no crepitus, no tenderness. 12:30 Cardiovascular: Rate: bradycardic, Rhythm: regular, Heart sounds: murmur, not appreciated, Edema: is not appreciated, JVD: is not appreciated. 12:30 Respiratory: the patient does not display signs of respiratory distress, Respirations: normal, no use of accessory muscles, no retractions, labored breathing, is not present, Breath sounds: are clear throughout, no decreased breath sounds, no stridor, no wheezing. 12:30 Abdomen/GI: Inspection: abdomen appears normal, Bowel sounds: active, all quadrants, Palpation: soft, in all quadrants, moderate abdominal tenderness, in the epigastric area and right upper quadrant, rebound tenderness, is not appreciated, involuntary guarding, is not appreciated. 12:30 Back: CVA tenderness, is absent. 12:30 Skin: cellulitis, is not appreciated, no rash present. Vital Signs: 11:35 BP 139 / 102; Pulse 56; Resp 17; Temp 97.0; Pulse Ox 100% ; Weight 85.73 kg; Height 5 ll1 ft. 3 in. (160.02 cm); Pain 10/10; 14:51 BP 138 / 88; Pulse 54; Resp 16; Pulse Ox 100% on R/A; tp1 16:55 BP 101 / 65; Pulse 47; Resp 16; Pulse Ox 98% on R/A; tp1 18:15 BP 143 / 87; Pulse 47; Resp 16; Pulse Ox 100% on R/A; tp1 19:16 BP 136 / 78; Pulse 43; Resp 16; Pulse Ox 100% on R/A; tp1 20:49 BP 136 / 84; Pulse 46; Resp 16; Pulse Ox 100% on R/A; tp1 11:35 Body Mass Index 33.48 (85.73 kg, 160.02 cm) ll1 MDM: 12:09 Patient medically screened. aura 12:31 Patient medically screened. aura 18:20 Data reviewed: vital signs, nurses notes, lab test result(s), radiologic studies, MRI, cp ultrasound, I have discussed the patient's presentation/case with the attending Emergency Department Physician; and as a result, I will admit patient. 18:25 Physician consultation: Alonso Palacios MD was contacted at 18:25, regarding consult, cp patient's condition, would like admission per Dr. Abby Arndt PA-C. 09/04 12:19 Order name: CBC with Diff; Complete Time: 13:42 09/04 13:42 Interpretation: BINDU% 79.9; LYM% 10.7. 09/04 12:19 Order name: CMP; Complete Time: 13:42 09/04 13:43 Interpretation: Normal except: K 3.2; AST 226; ALT 111; GLOB 3.8; A/G 1.0. 09/04 12:19 Order name: Lipase; Complete Time: 13:42 09/04 12:19 Order name: Urine Microscopic Only; Complete Time: 13:42 09/04 13:14 Order name: Urine Dipstick-Ancillary; Complete Time: 13:42 [facility] 09/04 13:19 Order name: Urine --Ancillary (enter results); Complete Time: 13:42 bd 09/04 12:19 Order name: US Abdomen Limited: gallbladder; Complete Time: 12:46 09/04 12:46 Interpretation: Report reviewed. 09/04 18:50 Order name: SARS RAPID; Complete Time: 20:20 09/05 02:46 Order name: CBC with Automated Diff; Complete Time: 02:47 [facility] 09/05 03:11 Order name: Comprehensive Metabolic Panel; Complete Time: 04:01 [facility] 09/05 03:11 Order name: Phosphorus; Complete Time: 04:01 [facility] 09/05 03:11 Order name: Lipid Profile; Complete Time: 04:01 [facility] 09/05 03:11 Order name: Magnesium; Complete Time: 04:01 [facility] 09/05 03:11 Order name: Thyroid Stimulating Hormone; Complete Time: 04:01 [facility] 09/04 12:19 Order name: IV Saline Lock; Complete Time: 13:14 09/04 12:19 Order name: Labs collected and sent; Complete Time: 13:14 09/04 12:19 Order name: Urine Dipstick-Ancillary (obtain specimen); Complete Time: 13:14 09/04 12:19 Order name: Urine Test (obtain specimen); Complete Time: 13:14 09/04 13:45 Order name: NPO; Complete Time: 13:49 09/04 13:47 Order name: Cholangiogram; Complete Time: 18:08 [facility] 09/04 18:15 Interpretation: Report reviewed. cp Administered Medications: 12:45 Drug: Zofran (Ondansetron) 4 mg Route: IVP; Site: right antecubital; tp1 18:14 Follow up: Response: Nausea is decreased tp1 12:47 Drug: Pepcid (famotidine) 20 mg Route: IVP; Site: right antecubital; tp1 18:14 Follow up: Response: Pain is decreased tp1 12:49 Drug: Dicyclomine 20 mg Route: IM; Site: right deltoid; tp1 18:14 Follow up: Response: Pain is decreased tp1 13:14 Drug: NS 0.9% 1000 ml Route: IV; Rate: 1 bolus; Site: right antecubital; tp1 18:14 Follow up: IV Status: Completed infusion; IV Intake: 1000ml tp1 19:50 Drug: Mefoxin (cefOXitin) 1 grams Route: IVPB; Infused Over: 30 mins; Site: right tp1 antecubital; 20:49 Follow up: Response: No adverse reaction; IV Status: Completed infusion; IV Intake: 82lbno5 20:49 Drug: metroNIDAZOLE 500 mg Volume: 100 ml; Route: IVPB; Infused Over: 30 mins; Site: tp1 right antecubital; 21:26 Follow up: Response: No adverse reaction; IV Status: Completed infusion; IV Intake: tp1 100ml Disposition Summary: 09/04/22 18:22 Hospitalization Ordered Hospitalization Status: Inpatient Admission cp Provider: Abby Arndt cp Condition: Stable cp Problem: new cp Symptoms: have improved cp Bed/Room Type: Standard cp Location: Telemetry/MedSurg (Inpatient)(09/05/22 14:51) dw Room Assignment: 213(09/05/22 14:51) dw Diagnosis - Other cholelithiasis without obstruction cp - Abnormal results of liver function studies cp Forms: - Medication Reconciliation Form cp - SBAR form cp Addendum: 09/07/2022 08:33 Co-signature as Attending Physician, Javier Taylor MD I agree with the assessment and c bro plan of care. Signatures: Dispatcher [employer] Brianna Turner RN RN Javier Thomas MD MD cha Page, Corey, PA PA Irene Boucher, RN RN Betsy Dunn Lynsay RN RN ll1 Meghann Kapoor RN RN tp1 Abby Arndt, PA-C PA-C sb4 Corrections: (The following items were deleted from the chart) 09/04 13:43 13:42 Normal except: K 3.2. cp cp 21:25 18:22 Telemetry/MedSurg (Inpatient) cp cg 21:25 18:22 cp cg 09/05 14:51 09/04 21:25 [facility] ER HOLD cg eb 09/05 14:51 09/04 21:25 ERHOLD- cg eb 09/05 14:51 14:51 Telemetry/MedSurg (Inpatient) eb dw 14:51 14:51 213 eb dw 23:09 09/04 18:20 Data reviewed: vital signs, nurses notes, cp cp
--- NOTE | 2022-09-04 18:23 | ER ---
Nurse's Notes [facility] Name: Rhoda Hunter Age: 27 yrs Sex: Female : 1995 Arrival Date: 09/04/2022 Time: 11:01 Bed 20 Private MD: Diagnosis: Other cholelithiasis without obstruction;Abnormal results of liver function studies Presentation: 09/04 11:35 Chief complaint: Patient states: Upper abd pain for 2 days. Dizzy, nausea. Coronavirus ll1 screen: Vaccine status: Patient reports being unvaccinated. Client denies travel out of the [place] in the last 14 days. nausea, Client presents with at least one sign or symptom that may indicate coronavirus-19. Standard/surgical mask placed on the client. Ebola Screen: Patient denies travel to an Ebola-affected area in the 21 days before illness onset. Initial Sepsis Screen: Does the patient meet any 2 criteria? No. Patient's initial sepsis screen is negative. Does the patient have a suspected source of infection? Yes: Acute abdominal pain. Risk Assessment: Do you want to hurt yourself or someone else? Patient reports no desire to harm self or others. Onset of symptoms was September 03, 2022. 11:35 Method Of Arrival: Ambulatory ll1 11:35 Acuity: JOEY 3 ll1 Triage Assessment: 11:36 General: Appears uncomfortable, Behavior is cooperative, appropriate for age. Pain: ll1 Complains of pain in abdomen Pain currently is 10 out of 10 on a pain scale. Quality of pain is described as aching, Is intermittent. Neuro: No deficits noted. Neuro: Reports dizziness, weakness. Cardiovascular: No deficits noted. GI: Reports upper abdominal pain, nausea. 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 - Social history:: Smoking status: Reported history of juuling and/or vaping. Patient denies any tobacco usage or history of. Screenin:17 Abuse screen: Denies threats or abuse. Denies injuries from another. Nutritional tp1 screening: No deficits noted. Tuberculosis screening: No symptoms or risk factors identified. Fall Risk None identified. Assessment: 12:35 General: Appears in no apparent distress. comfortable, Behavior is calm, cooperative. tp1 Pain: Denies pain. Neuro: Level of Consciousness is awake, alert, obeys commands, Oriented to person, place, time, situation. Cardiovascular: Patient's skin is warm and dry. Respiratory: Airway is patent Respiratory effort is even, unlabored. GI: Abdomen is obese, Abd is soft and non tender Reports diarrhea, nausea. : No signs and/or symptoms were reported regarding the genitourinary system. EENT: No signs and/or symptoms were reported regarding the EENT system. Derm: Skin is pink, warm \T\ dry. Musculoskeletal: Circulation, motion, and sensation intact. 13:58 Reassessment: Patient appears in no apparent distress at this time. No changes from tp1 previously documented assessment. Patient and/or family updated on plan of care and expected duration. Pain level reassessed. Patient is alert, oriented x 3, equal unlabored respirations, skin warm/dry/pink. states medication has helped. rates pain 11/29. 14:56 Reassessment: Patient appears in no apparent distress at this time. No changes from tp1 previously documented assessment. Patient is alert, oriented x 3, equal unlabored respirations, skin warm/dry/pink. Patient denies pain at this time. 16:55 Reassessment: Patient appears in no apparent distress at this time. No changes from tp1 previously documented assessment. Patient is alert, oriented x 3, equal unlabored respirations, skin warm/dry/pink. Patient denies pain at this time. 18:14 Reassessment: Patient appears in no apparent distress at this time. No changes from tp1 previously documented assessment. Patient is alert, oriented x 3, equal unlabored respirations, skin warm/dry/pink. visiting with friend at bedside Patient denies pain at this time. 19:16 Reassessment: Patient appears in no apparent distress at this time. No changes from tp1 previously documented assessment. Patient is alert, oriented x 3, equal unlabored respirations, skin warm/dry/pink. Patient denies pain at this time. 20:52 Reassessment: Patient appears in no apparent distress at this time. No changes from tp1 previously documented assessment. Patient is alert, oriented x 3, equal unlabored respirations, skin warm/dry/pink. Vital Signs: 11:35 BP 139 / 102; Pulse 56; Resp 17; Temp 97.0; Pulse Ox 100% ; Weight 85.73 kg; Height 5 ll1 ft. 3 in. (160.02 cm); Pain 10/10; 14:51 BP 138 / 88; Pulse 54; Resp 16; Pulse Ox 100% on R/A; tp1 16:55 BP 101 / 65; Pulse 47; Resp 16; Pulse Ox 98% on R/A; tp1 18:15 BP 143 / 87; Pulse 47; Resp 16; Pulse Ox 100% on R/A; tp1 19:16 BP 136 / 78; Pulse 43; Resp 16; Pulse Ox 100% on R/A; tp1 20:49 BP 136 / 84; Pulse 46; Resp 16; Pulse Ox 100% on R/A; tp1 11:35 Body Mass Index 33.48 (85.73 kg, 160.02 cm) ll1 ED Course: 11:01 Patient arrived in ED. as 11:14 Javier Michael PA is PHCP. cp 11:14 Javier Taylor MD is Attending Physician. cp 11:34 Arm band placed on. ll1 11:36 Triage completed. ll1 12:28 Meghann Kapoor, CAIN is Primary Nurse. tp1 12:41 US Abdomen Limited: gallbladder In Process Unspecified. EDMS 12:45 Patient has correct armband on for positive identification. Bed in low position. Call tp1 light in reach. Adult w/ patient. 12:45 Inserted saline lock: 20 gauge in right antecubital area, using aseptic technique. tp1 Blood collected. 13:19 No provider procedures requiring assistance completed. tp1 17:49 Cholangiogram In Process Unspecified. EDMS 18:20 Abby Arndt PA-C is Hospitalizing Provider. cp 09/05 08:59 Primary Nurse role handed off by Meghann Kapoor, CAIN bp 08:59 Davdi Deutsch, CAIN is Primary Nurse. bp 16:43 Patient admitted, IV remains in place. bp Administered Medications: 09/04 12:45 Drug: Zofran (Ondansetron) 4 mg Route: IVP; Site: right antecubital; tp1 18:14 Follow up: Response: Nausea is decreased tp1 12:47 Drug: Pepcid (famotidine) 20 mg Route: IVP; Site: right antecubital; tp1 18:14 Follow up: Response: Pain is decreased tp1 12:49 Drug: Dicyclomine 20 mg Route: IM; Site: right deltoid; tp1 18:14 Follow up: Response: Pain is decreased tp1 13:14 Drug: NS 0.9% 1000 ml Route: IV; Rate: 1 bolus; Site: right antecubital; tp1 18:14 Follow up: IV Status: Completed infusion; IV Intake: 1000ml tp1 19:50 Drug: Mefoxin (cefOXitin) 1 grams Route: IVPB; Infused Over: 30 mins; Site: right tp1 antecubital; 20:49 Follow up: Response: No adverse reaction; IV Status: Completed infusion; IV Intake: 56ebpo6 20:49 Drug: metroNIDAZOLE 500 mg Volume: 100 ml; Route: IVPB; Infused Over: 30 mins; Site: tp1 right antecubital; 21:26 Follow up: Response: No adverse reaction; IV Status: Completed infusion; IV Intake: tp1 100ml Medication: 13:19 VIS not applicable for this client. tp1 Intake: 18:14 IV: 1000ml; Total: 1000ml. tp1 20:49 IV: 50ml; Total: 1050ml. tp1 21:26 IV: 100ml; Total: 1150ml. tp1 Outcome: 18:22 Decision to Hospitalize by Provider. 09/05 16:42 Admitted to Med/surg accompanied by tech, family with patient, via wheelchair, room bp 213, with chart, Report called to OSWALDO BARLOW Condition: stable Instructed on the need for admit. 17:08 Patient left the ED. bp Signatures: Dispatcher [employer] EDMS Yu Palacios Corey, PA PA cp David Deutsch RN RN bp Anthony Silva RN RN ll1 Meghann Kapoor RN RN tp1 Corrections: (The following items were deleted from the chart) 09/04 11:37 11:35 Pulse 56bpm; Resp 17bpm; Pulse Ox 100%; Temp 97.0F; 85.73 kg; Height 5 ft. 3 in.; ll1 BMI: 33.4; Pain 10/10; ll1
--- NOTE | 2022-09-04 19:21 | P.HP ---
Certification for Inpatient Patient admitted to: Inpatient With expected LOS: <2 Midnights Patient will require the following post-hospital care: None Practitioner: I am a practitioner with admitting privileges, knowledge of patient current condition, hospital course, and medical plan of care. Services: Services provided to patient in accordance with Admission requirements found in Title 42 Section 412.3 of the Code of Federal Regulations Patient History Date of Service: 09/04/22 Reason for admission: Cholelithiasis History of Present Illness: Patient is a 27 year old female with PCOS who presented to the ED with complaints of epigastric abdominal pain. Patient reports that she's had gallstones for about a year now. She has had several gallbaldder attacks over the past few months associated with abdominal pain, nausea, vomiting, loss of appetite, and diarrhea. Today her labs are significant for K 3.2, AST 226, ALT 111, WBC 9. Gallbladder US showed "multiple shadowing gallstones. No pericholecystic fluid or gallbladder wall thickening. The common bile duct is normal measuring 4 mm.The liver demonstrates no findings of intrahepatic biliary dilatation." MRCP showed "cholelithiasis. No significant biliary tree abnormality." Dr. Palacios was contacted and has agreed to consult. Patient is admitted for further management. Allergies Penicillins Allergy (Verified 09/04/22 19:27) Sulfa (Sulfonamide Antibiotics) Allergy (Verified 09/04/22 19:27) Home medications list reviewed: Yes Home Medications: Pnv59/Iron,Carb,Fum/FA/Dss/Dha [Citranatal [place] Capsule] 1 tab PO DAILY 08/26/17 Codeine/APAP [Tylenol W/Codeine #3 tab] 1 tab PO Q6HP PRN #15 tab 08/28/17 - Past Medical/Surgical History Diabetic: No -: PCOS -: Psychosocial/ Personal History: Patient lives at home with her boyfriend and child. - Family History Family History: Reviewed- Non-Contributory - Family History Father -: Hypertension - Social History Smoking Status: Current some day smoker Alcohol use: No CD- Drugs: No Caffeine use: Yes Place of Residence: Home Review of Systems Gastrointestinal: Nausea, Vomiting, Abdominal Pain, Diarrhea Physical Examination - Physical Exam General: Alert, In no apparent distress HEENT: Atraumatic, PERRLA, EOMI, Sclerae nonicteric Neck: Supple, 2+ carotid pulse no bruit, No LAD, Without JVD or thyroid abnormality Respiratory: Clear to auscultation bilaterally, Normal air movement Cardiovascular: Regular rate/rhythm, Normal S1 S2 Gastrointestinal: Normal bowel sounds, Soft and benign, Non-distended Musculoskeletal: No tenderness Integumentary: No rashes Neurological: Normal speech, Normal strength at 5/5 x4 extr, Normal tone, Normal affect - Studies Laboratory Data (last 24 hrs) 09/04/22 12:43: Sodium 138, Potassium 3.2 L, BUN 11, Creatinine 0.63, Glucose 85, Total Bilirubin 0.7, AST 226 H, ALT 111 H, Alkaline Phosphatase 87, Lipase 180 09/04/22 12:43: WBC 9.50, Hgb 13.6, Hct 39.2, Plt Count 180 Assessment and Plan - Problems (Diagnosis) (1) Cholelithiasis Current Visit: Yes Status: Acute Qualifiers: Cholelithiasis location: gallbladder Cholecystitis presence: without cholecystitis Biliary obstruction: without biliary obstruction Qualified Code(s): K80.20 - Calculus of gallbladder without cholecystitis without obstruction (2) Intractable abdominal pain Current Visit: Yes Status: Acute (3) Elevated LFTs Current Visit: Yes Status: Acute (4) PCOS (polycystic ovarian syndrome) Current Visit: Yes Status: Chronic - Plan NPO. Plan for lap cholecystectomy tomorrow with Dr. Palacios. IV fluids with KCl and preoperative antibiotics. Pain medications and antiemetics as needed. Monitor and replete electrolytes per protocol. Reconcile and continue home medications. SCDs for VTE prophylaxis. Full code. Discharge Plan: Home Plan to discharge in: 48 Hours - Advance Directives Does patient have a Living Will: No Does patient have a Durable POA for Healthcare: No - Code Status/Comfort Care Code Status Assessed: Yes (Full) Critical Care: No Time Spent Managing Pts Care (In Minutes): 50
[2022-09-04 19:32] LABS: SARS-CoV-2 Antigen Rapid Res Negative (Negative)
[2022-09-04] MEDS ORDERED: NA CHLORIDE 0.9% 50 ML IV ONE (19:45)
[2022-09-04] MEDS ORDERED: CEFOXITIN SODIUM 1 GM/VIAL ONE (19:45)
[2022-09-04] MEDS ORDERED: METRONIDAZOLE 500mg IVPB 500 MG/100 ML BAG IV ONE (19:46)
[2022-09-04] MEDS: NS KCL 20MEQ 20 MEQ/1,000 ML BAG IV SCH (22:27)
[2022-09-04] MEDS ORDERED: ONDANSETRON 4 MG/2 ML VIAL IV PRN (22:27)
[2022-09-04] MEDS ORDERED: ACETAMINOPHEN 500 MG TAB PO PRN (22:27)
[2022-09-04 22:34] VITALS: BMI 33.3
[2022-09-04] MEDS ORDERED: ACETAMINOPHEN 325 MG TABLET PO PRN (23:00)
[2022-09-05 02:45] LABS: Absolute Lymphocytes (CBC) 1.5 K/uL (0.7-4.9); Hematocrit 36.8 % (36.0-45.0); Lymphocytes % 33.3 % (15.3-44.8); MCV 83.6 fL (80-100); MPV 10.6 fL (7.6-11.3)
[2022-09-05 03:10] LABS: Albumin 3.4 g/dL (3.4-5.0); Bilirubin Total 0.5 mg/dL (0.2-1.0); Phosphorus 3.2 mg/dL (2.5-4.9); Potassium 3.6 mmol/L (3.5-5.1); Protein, Total 6.6 g/dL (6.4-8.2); Thyroid Stimulating Hormone 1.05 uIU/mL (0.360-3.740)
[2022-09-05] MEDS ORDERED: INFLUENZA VACCINE (for 6+ mo) 0.5 ML DOSE IMVAC ONE (08:00)
[2022-09-05] MEDS ORDERED: NS KCL 20MEQ 1,000 ML IV ONE (12:20)
[2022-09-05] MEDS: NS KCL 20MEQ 20 MEQ/1,000 ML BAG IV SCH (12:23)
--- NOTE | 2022-09-05 15:13 | P.PN ---
Subjective Date of Service: 09/05/22 Chief Complaint: Cholelithiasis Patient denies any abdominal pain during my interaction today. No nausea or vomiting. Noted her liver enzymes are elevated. Physical Examination - Vital Signs Temperature: 98.5 F Blood Pressure: 143/81 Pulse: 47 Respirations: 18 Pulse Ox (%): 100 Assessment And Plan - Current Problems (Diagnosis) (1) Obesity Current Visit: Yes Status: Acute (2) Cholelithiasis Current Visit: Yes Status: Acute Qualifiers: Cholelithiasis location: gallbladder Cholecystitis presence: without cholecystitis Biliary obstruction: without biliary obstruction Qualified Code(s): K80.20 - Calculus of gallbladder without cholecystitis without obstruction (3) Elevated LFTs Current Visit: Yes Status: Acute - Plan Physical Exam General: Alert, In no apparent distress Respiratory: Clear to auscultation bilaterally, Normal air movement Cardiovascular: Regular rate/rhythm, Normal S1 S2 Gastrointestinal: Normal bowel sounds, Soft and benign, Non-distended, nontender. Musculoskeletal: No tenderness Integumentary: No rashes Neurological: No focal motor deficit. Plan: MRCP results reviewed-no CBD stone or dilatation. It confirmed cholelithiasis. Dr. Palacios planning lap cholecystectomy tomorrow. No GI available for consult regarding elevated LFT. Check hepatitis profile. Monitor LFT. Supportive measures with pain management as needed. Diet as tolerated. N.p.o. at midnight for surgery tomorrow.
[2022-09-05] MEDS: CIPROFLOXACIN 400mg IV 400 MG/200 ML BAG IV SCH (22:07)
[2022-09-06] MEDS: MORPHINE 2 MG/ML SYR IV PRN ×3 (01:04→20:16)
[2022-09-06] MEDS: NS KCL 20MEQ 20 MEQ/1,000 ML BAG IV SCH ×2 (01:05→14:27)
[2022-09-06 04:33] LABS: Albumin 3.6 g/dL (3.4-5.0); Bilirubin Direct 0.2 mg/dL (0-0.2); Bilirubin Total 0.7 mg/dL (0.2-1.0); Protein, Total 6.9 g/dL (6.4-8.2)
[2022-09-06 04:35] LABS: Albumin 3.7 g/dL (3.4-5.0); Bilirubin Total 0.7 mg/dL (0.2-1.0); Potassium 3.5 mmol/L (3.5-5.1); Protein, Total 6.9 g/dL (6.4-8.2)
[2022-09-06] MEDS ORDERED: KCL 20 MEQ/100 mL IVPB 20 MEQ/100 ML BAG IV SCH (07:10)
[2022-09-06] MEDS ORDERED: NA CHLORIDE 0.9% 250 ML ONE (08:26)
[2022-09-06] MEDS: CIPROFLOXACIN 400mg IV 400 MG/200 ML BAG IV SCH ×2 (08:35→20:16)
[2022-09-06 11:27] VITALS: O2SAT 100
[2022-09-06] MEDS ORDERED: Ringers Lactate 1,000 ML IV ONE (12:00)
[2022-09-06] MEDS ORDERED: FENTANYL CITR 100 MCG/2 ML ONE ×2 (12:20→13:18)
[2022-09-06] MEDS ORDERED: propofoL 200 MG/20 ML VIAL IV ONE (12:21)
[2022-09-06] MEDS ORDERED: MIDAZOLAM HCL 2 MG/2 ML INJ ONE (12:22)
[2022-09-06] MEDS ORDERED: LIDOCAINE 2% MPF 5 ML VIAL ONE (12:22)
[2022-09-06] MEDS ORDERED: ONDANSETRON 4 MG/2 ML VIAL ONE (12:24)
[2022-09-06] MEDS ORDERED: ROCURONIUM 50 MG/5 ML VIAL IV ONE (12:26)
[2022-09-06] MEDS ORDERED: GLYCOPYRROLATE 0.2 MG/ML SYR ONE (12:27)
[2022-09-06] MEDS ORDERED: NEOSTIGMINE 1 MG/ML -5 ML ONE (12:29)
[2022-09-06] MEDS ORDERED: Mastisol Adhesive Liq ONE (13:32)
[2022-09-06] MEDS ORDERED: HYDROCODONE/APAP 5/325 MG TAB PO PRN (13:48)
--- NOTE | 2022-09-06 17:27 | P.DS ---
Admission Date: 09/04/22 Discharge Date: 09/07/22 Disposition: ROUTINE DISCHARGE Discharge Condition: GOOD Reason for Admission: Cholelithiasis - Problems (1) Obesity Current Visit: Yes Status: Acute (2) Cholelithiasis Current Visit: Yes Status: Acute Qualifiers: Cholelithiasis location: gallbladder Cholecystitis presence: without cholecystitis Biliary obstruction: without biliary obstruction Qualified Code(s): K80.20 - Calculus of gallbladder without cholecystitis without obstruction (3) Elevated LFTs Current Visit: Yes Status: Acute Brief History of Present Illness: Patient is a 27 year old female with PCOS who presented to the ED with complaints of epigastric abdominal pain. Patient reports that she's had gallstones for about a year now. She stated she has had several "gallbaldder attacks over the past few months associated with abdominal pain, nausea, vomiting, loss of appetite, and diarrhea. Labs in the ED were significant for K 3.2, AST 226, ALT 111, WBC 9. Gallbladder US showed "multiple shadowing gallstones. No pericholecystic fluid or gallbladder wall thickening. The common bile duct is normal measuring 4 mm.The liver demonstrates no findings of intrahepatic biliary dilatation." MRCP showed "cholelithiasis. No significant CBD abnormality. General surgery Dr. Palacios was contacted and patient admitted for further management. Hospital Course: Patient admitted to the medical floor, treated with antibiotics. MRCP done showed no CBD stone or dilatation. It confirmed cholelithiasis. Patient seen by Dr. Palacios who performed lap cholecystectomy. She tolerated full liquid diet after the cholecystectomy Patient deemed stable for discharge today per Dr. Palacios. Patient prescribed Augmentin and Tylenol 3 for pain management. Vital Signs/Physical Exam: Temp Pulse Resp BP Pulse Ox 97 F 53 17 148/89 H 100 09/06/22 16:00 09/06/22 16:00 09/06/22 16:00 09/06/22 16:00 09/06/22 16:00 General: Alert, In no apparent distress, Oriented x3 HEENT: Mucous membr. moist/pink Neck: Supple, JVD not distended Respiratory: Normal air movement Cardiovascular: No edema, Regular rate/rhythm Gastrointestinal: Soft and benign, Non-distended Laboratory Data at Discharge: WBC 4.40 K/uL (4.3-10.9) 09/05/22 02:07 Hgb 12.6 g/dL (12.0-15.0) 09/05/22 02:07 Hct 36.8 % (36.0-45.0) 09/05/22 02:07 Plt Count 164 K/uL (152-406) 09/05/22 02:07 Sodium 140 mmol/L (136-145) 09/06/22 03:12 Potassium 3.5 mmol/L (3.5-5.1) 09/06/22 03:12 BUN 5 mg/dL (7-18) L 09/06/22 03:12 Creatinine 0.53 mg/dL (0.55-1.3) L 09/06/22 03:12 Glucose 69 mg/dL (74-106) L 09/06/22 03:12 Phosphorus 3.2 mg/dL (2.5-4.9) 09/05/22 02:07 Magnesium 2.0 mg/dL (1.8-2.4) 09/05/22 02:07 Total Bilirubin 0.7 mg/dL (0.2-1.0) 09/06/22 03:12 Total Bilirubin 0.7 mg/dL (0.2-1.0) 09/06/22 03:12 AST 146 U/L (15-37) H 09/06/22 03:12 AST 148 U/L (15-37) H 09/06/22 03:12 ALT 219 U/L (12-78) H 09/06/22 03:12 ALT 219 U/L (12-78) H 09/06/22 03:12 Alkaline Phosphatase 85 U/L (45-117) 09/06/22 03:12 Alkaline Phosphatase 87 U/L (45-117) 09/06/22 03:12 Triglycerides 58 mg/dL (<150) 09/05/22 02:07 Cholesterol 124 mg/dL (<200) 09/05/22 02:07 HDL Cholesterol 52 mg/dL (40-60) 09/05/22 02:07 Cholesterol/HDL Ratio 2.38 09/05/22 02:07 Lipase 180 U/L (73-393) 09/04/22 12:43 Home Medications: Ciprofloxacin HCl [Cipro] 500 mg PO BID #10 tab 09/06/22 Codeine/APAP [Tylenol W/Codeine #3 tab] 1 tab PO Q6HP PRN #20 tab 09/06/22 New Medications: Codeine/APAP [Tylenol W/Codeine #3 tab] 1 tab PO Q6HP PRN #20 tab PRN Reason: Pain Ciprofloxacin HCl [Cipro] 500 mg PO BID #10 tab Physician Discharge Instructions: Diet:AHA Activity:No lifting more than 10 lbs PHYSICIAN'S DISCHARGE INSTRUCTIONS Keep area dry for 48h then may remove outer dressing and shower. Keep sterile strips intact. Diet: AHA Activity: No lifting more than 10 lbs Followup: Alonso Palacios MD [ACTIVE - CAN ADMIT] - 09/11/22 NONE,NONE [Primary Care Provider] - 09/11/22 () Time spent managing pt's care (in minutes): 33
[2022-09-07] MEDS: NS KCL 20MEQ 20 MEQ/1,000 ML BAG IV SCH ×2 (00:30→03:47)
--- NOTE | 2022-09-07 01:54 | OP ---
Date of Procedure: 09/06/2022 Surgeon: Alonso Palacios MD Preoperative Diagnoses: Acute cholecystitis, symptomatic cholelithiasis, increased liver enzymes, an d MRCP negative. Postoperative Diagnoses: Acute cholecystitis, symptomatic cholelithiasis, increased liver enzymes, a nd MRCP negative. Procedure: Laparoscopic cholecystectomy. Anesthesia: General plus local. Complications: None. Estimated Blood Loss: Less than 10 cc. Findings: Acute cholecystitis. Indications: This is a case of a female who comes to us with acute cholecystitis, symptomatic cholel ithiasis, and also increased liver enzymes and we repeated them today. Also we did an MRCP and appar ently still has Valderrama sign positive, but does not show any indication of stones in the common bile d uct so we offered her laparoscopic with possible open cholecystectomy with benefits, alternatives, an d risks including, but not limited to infection, bleeding, damage to adjacent structures, anesthesia complication, choledocholithiasis, bile leak, pancreatitis, ME, and even . She also understands this may not relieve the symptoms and she might need more than one surgical intervention. She under stood and signed a consent. Procedure In Detail: The patient was brought to the operating room and placed in supine position. A nesthesia was given without complication. Abdominal area was prepped and draped in the usual sterile fashion. Marcaine 0.5% was injected for local anesthetic followed by sharp incision of the skin in the infraumbilical region. Incision was carried down to fascia, which was opened under direct vision . Vicryl #1 was placed inside the fascia. Eliana trocar was carefully introduced. Pneumoperitoneum was obtained. I placed 3 more trocars, 5 mm each one of them with one in the epigastric area and 2 in the right upper quadrant using same technique, which consisted of local anesthetic, sharp incision of the skin, and introduction of the trocars under direct vision. This allowed me to put a grasper in the fundus of the gallbladder and another grasper in the infundibulum and the gallbladder was retr acted in the inferolateral fashion exposing the triangle of Calot and obtaining critical view. The c ystic duct and cystic artery were clearly isolated and freed circumferentially and a connection betwe en those and the gallbladder were clearly identified. I proceeded to ligate those by using at least 3 clips proximal, 1 clip distal, ligation in middle. Same was done with the cystic artery. No bile leak. No bleeding. The gallbladder was removed from liver using Bovie cauterizer and removed from a bdominal cavity using Endo Catch through the umbilical incision. The area was inspected once again. No bile leak. No bleeding. At that moment, I proceeded to remove the trocars under direct vision. Deflated the pneumoperitoneum, closed the fascia with #1 Vicryl, irrigated subcutaneous tissue and c losed that with 3-0 chromic and skin with 3-0 chromic in a subcuticular fashion and Steri-Strips on t op. Sponge count and instrument counts were correct. Patient tolerated the procedure well. Patient was sent to recovery in stable condition. The patient expressed her desire to be discharged home. I discussed the case with the primary doctor. If she tolerates at least full liquid diet, and obviou sly she has no nausea and no vomiting, then she may go home from the surgical standpoint, but we will keep her on a soft diet without any spiciness or too greasy contents and then follow up in my office this Friday since and Friday we are going to be closed for holidays. No he christine lifting, no more than 20 pounds and she can take the dressings off on Friday and leave the Steri- Strips intact. ADI/ANASTACIO Voice ID: [id number] Report ID: [id number]
[2022-09-07 04:27] LABS: Potassium 3.7 mmol/L (3.5-5.1)
[2022-09-07 08:23] VITALS: BP 118/63; TEMP 97.9
[2022-09-07] MEDS ORDERED: POTASSIUM 25 MEQ EFFERV TAB PO ONE (09:00)
[2022-09-07] MEDS: CIPROFLOXACIN 400mg IV 400 MG/200 ML BAG IV SCH (09:39)
--- NOTE | 2022-09-07 10:44 | P.PN ---
Subjective Date of Service: 09/06/22 Chief Complaint: Cholelithiasis Patient is status post lap cholecystectomy She is drowsy but denies any abdominal pain. Physical Examination - Vital Signs Temperature: 97.9 F Blood Pressure: 118/63 Pulse: 52 Respirations: 14 Pulse Ox (%): 97 Assessment And Plan - Current Problems (Diagnosis) (1) Obesity Current Visit: Yes Status: Acute (2) Cholelithiasis Current Visit: Yes Status: Acute Qualifiers: Cholelithiasis location: gallbladder Cholecystitis presence: without cholecystitis Biliary obstruction: without biliary obstruction Qualified Code(s): K80.20 - Calculus of gallbladder without cholecystitis without obstruction (3) Elevated LFTs Current Visit: Yes Status: Acute - Plan Physical Exam General: Alert, In no apparent distress Respiratory: Clear to auscultation bilaterally, Normal air movement Cardiovascular: Regular rate/rhythm, Normal S1 S2 Gastrointestinal: Normal bowel sounds, Soft and benign, Non-distended, nontender. Musculoskeletal: No tenderness Integumentary: No rashes Neurological: No focal motor deficit. Plan: MRCP results reviewed-no CBD stone or dilatation. It confirmed cholelithiasis. Status post lap cholecystectomy. Postop diagnosis: Acute cholecystitis. No GI available for consult regarding elevated LFT. LFTs trending down. Check hepatitis profile. Full liquid diet per Dr. Palacios. Possible discharge if patient tolerates the liquid diet.
[2022-09-12 03:50] LABS: HBsAG Nonreactive (Nonreactive)
--- NOTE | 2022-09-16 12:35 | CON ---
Date of Consultation: 09/04/2022 Diagnoses: Epigastric right upper quadrant pain, symptomatic cholelithiasis, acute cholecystitis. History Of Present Illness: This is the case of a 27-year-old patient who came to us complaining of epigastric right upper quadrant pain associated with nausea, vomiting. This has been happening for f ew days. The patient was diagnosed with cholelithiasis, cholecystitis. Also, increased liver enzyme s and workup for that is in process. She denies any dysuria, hematuria, hematochezia, melena. Denie s any recent traveling out of the country. Denies any family member sick at home. Review of Systems: 10 points otherwise unremarkable. See above. Allergies: PENICILLIN AND SULFA. Social History: She does not smoke. She does not drink alcohol. Past Surgical History: Includes . Family History: Noncontributory. Physical Examination: General: Patient is awake and alert. HEENT: Pupils are equal and reactive. Anicteric. Neck: Supple. Chest: Clear. Abdomen: Soft and depressible. Valderrama sign positive. Extremities: Good capillary refill. Breasts: Deferred. Pelvic: Deferred. Rectal: Deferred. Laboratory Data: Blood work reviewed with increased liver enzymes noticed. Ultrasound of the abdome n include cholelithiasis. Assessment: A 27-year-old patient with acute cholecystitis, symptomatic cholelithiasis, increased LF Ts. Workup for increased LFTs are in process. We have no stones in the common bile duct. We will p roceed with laparoscopic possible open cholecystectomy that was fully explained to her with benefits, alternatives, and risks including, but not limited to infection, bleeding, damage to adjacent struct ures, anesthesia complication, choledocholithiasis, bile leak, pancreatitis, myocardial infarction, a nd . She also understands this may not relieve the symptoms. She might need more than one surg ical intervention. She understood, signed a consent. She understood that the liver enzymes elevatio n does not have to be related to the stone, so if this remain and stones are not found in the common bile duct, she must check with a telegrapher agent to look for the reason for that and see if that h as something to do with it. She understood. ADI/ANASTACIO Voice ID: [id number] Report ID: [id number]
== END 2022-09-07 11:34 | disposition home or self-care (01) | DRG 419 ==
LOC: ER 10:59 → ERHOLD 19:16 → 2ND 09-05 15:30
PROVIDERS: ADMIT Internal Medicine; ATTEND Internal Medicine
PROC: 0FT44ZZ Resection of Gallbladder, Percutaneous Endoscopic Approach (ICD-10-PCS; principal; 2022-09-06 12:30)
DX: K80.00 Calculus of gallbladder with acute cholecystitis without obstruction (principal); E66.9 Obesity, unspecified; E28.2 Polycystic ovarian syndrome; F17.200 Nicotine dependence, unspecified, uncomplicated; R79.89 Other specified abnormal findings of blood chemistry; Z88.0 Allergy status to penicillin; Z88.1 Allergy status to other antibiotic agents; Z68.33 Body mass index [BMI] 33.0-33.9, adult; Z28.310 Unvaccinated for COVID-19; Z20.822 Contact with and (suspected) exposure to COVID-19
CPT/HCPCS: 36415; 74181; 76705; 80048; 80053; 80061; 80076; 81003; 81015; 81025; 83690; 83735; 84100; 84443; 85025; 86704; 86706; 87340; 87811; 88304; 94010; 96361; 96365; 96367; 96372; 96375; 99285; J0500; J0694; J0744; J2001; J2250; J2270; J2405; J2704; J2710; J3010; J3480; J7030; J7050; J7120

== ENCOUNTER 2022-12-13 09:53 | Emergency (ER) | payer OTHER ==
--- OUTSIDE RECORDS SUMMARY | 2022-12-13 09:57 | XMS REPORT | Continuity of Care Document ---
:1995 Author Organization [facility] t Address [address] [place] [address] [address] [place] [address] Care Team Providers Name Role Phone LEONARDA BROWN Primary Care Physician Unavailable EVA RAYO Attending Clinician Unavailable Jose PERSON, Mary Ann Mayer Attending Clinician MARY ANN GARCIA Attending Clinician Unavailable 2, [facility] Attending Clinician Unavailable Payers Payer Name Policy Type Policy Number Effective Date Expiration Date S ource [facility] [id number] 2012 00:00:00 [place]ICA[place] [id number] 2020 00:00:00 Problems Condition Condition Condition Status Onset Resolution Last Treating Co mments Source Name Details Category Date Date Treatment Clinician Date Obesity Obesity Disease Active Univers (BMI (BMI 4-29 ity of 30-39.9) 30-39.9) 00:00: [address] Allergies, Adverse Reactions, Alerts Allergy Allergy Status Severity Reaction(s) Onset Inactive Treating Comm ents Source Name Type Date Date Clinician NO KNOWN Drug Active Univers ALLERGIE Class ity of S [facility] Social History Social Habit Start Date Stop Date Quantity Comments Source History of tobacco Cigarette Smoker University of use [facility] ASSERTION [facility] Sex Assigned At Universit y of [facility] Exposure to Not sure [facility] SARS-CoV-2 (event) [facility] Cigarettes smoked 2020-02-16 2020-02-16 [facility] ity of current (pack per 00:00:00 00:00:00 ) - Reported Branch Cigarette 2020-02-16 2020-02-16 University of pack-years 00:00:00 00:00:00 [facility] Alcohol intake 2020-02-16 2020-02-16 [facility] 00:00:00 00:00:00 [facility] Smoking Status Start Date Stop Date Source Former smoker 2020-02-16 00:00:00 2020-02-16 00:00:00 [facility] Medications Ordered Filled Start Stop Current Ordering [...] [place] ( 42 daily. Medical GUMMY ORAL) [place] Yes 2{tbl} Take 2 Unive rs vits62/FA/o 4-29 tablets by it y of m3/dha/epa 15:37: mouth [place] ( 42 daily. Medical GUMMY ORAL) [place] Vital Signs Vital Name Observation Time Observation Value Comments Source Body height 2020-02-16 15:37:00 160 cm [facility] Body weight 2020-02-16 15:37:00 89.812 kg [facility] BMI 2020-02-16 15:37:00 35.07 kg/m2 [facility] Procedures This patient has no known procedures. Encounters Start End Encounter Admission Attending Care Care Encounter Source Date/Time Date/Time Type Type Clinicians Facility Department ID 2022-12-18 2022-12-18 Outpatient R PERRI ORVALERY [facility] [id number] [facility] 14:30:00 14:30:00 EVA morris [facility] 2020-02-24 2020-02-24 Telephone Mary Ann Garcia [facility] [id number] [facility] 00:00:00 00:00:00 [place] [id number] i [place] [id number] Helen Leonio [id number] Ne dical [address] 2020-02-17 2020-02-17 Outpatient R MARY ANN GARCIA [facility] [id number] Univers 10:00:00 10:00:00 ity of [facility] 2020-02-17 2020-02-17 Flat Optical Element Maker 2, [facility] [id number] Univers 09:29:46 09:44:46 Visit Kourtney Garcialogan [place] [id number] [id number] [id number] Ne dical nal [address] [facility] 2020-02-16 2020-02-16 Outpatient R MARY ANN GARCIA [facility] [id number] Univers 10:00:00 15:10:42 ity of [facility] 2020-02-16 2020-02-16 Telemedici Kourtney Garciaen [facility] [id number] Univers 08:19:50 15:10:42 ne Visit Moreno [place] [id number] [id number] [id number] Ne dical [facility] 2020-02-14 2020-02-14 Outpatient R JOSE MARY ANN [facility] [id number] Univers 14:15:00 14:15:00 ity [facility] Results This patient has no known results.
[2022-12-13 10:42] LABS: Urine Blood 2+ (Negative); Urine Glucose Negative (Negative); Urine Protein Negative (Negative)
[2022-12-13 10:51] LABS: Urine Bacteria <20 /HPF (<20); Urine Mucus Slight /HPF (None Seen); Urine RBC <5 /HPF (None Seen); Urine WBC Clump Rare /HPF (None Seen)
[2022-12-13 11:00] LABS: Absolute Lymphocytes (CBC) 2.3 K/uL (0.7-4.9); Hematocrit 39.7 % (36.0-45.0); Lymphocytes % 26.6 % (15.3-44.8); MCV 83.3 fL (80-100); MPV 9.5 fL (7.6-11.3); RBC Red Blood Cell Count 4.77 M/uL (3.86-4.86)
[2022-12-13] MEDS ORDERED: FAMOTIDINE 20 MG/2 ML VIAL IV ONE (11:00)
[2022-12-13] MEDS ORDERED: NA CHLORIDE 0.9% 1,000 ML ONE ×2 (11:00→12:18)
[2022-12-13] MEDS ORDERED: ONDANSETRON 4 MG/2 ML VIAL ONE (11:00)
[2022-12-13 11:18] LABS: Albumin 4.1 g/dL (3.4-5.0); Bilirubin Total 0.8 mg/dL (0.2-1.0); Potassium 3.2 mmol/L (3.5-5.1); Protein, Total 8.1 g/dL (6.4-8.2)
--- NOTE | 2022-12-13 12:24 | RAD REPORT ---
EXAM DESCRIPTION: US - Transvaginal OB - 12/13/2022 12:10 pm CLINICAL HISTORY: ABD CRAMPING, COMPARISON: Transvaginal OB dated 07/05/2021 TECHNIQUE: Sonographic grayscale and color flow images of a first-trimester were obtained through approach. FINDINGS: The patient is unsure of the date of the last menstrual period. A single intrauterine is identified. [place]-rump length measures 3.7 millimeters, corresponding to gestational age of 6 weeks, 0 days. cardiac pulsations were visualized on real-time ultrasound, although M-mode heart rate me asurement could not be performed, possibly due to the small pole. Normal yolk sac is visualized. The right ovary could not be visualized. The left ovary is unremarkable. No free fluid. IMPRESSION: 1. Single intrauterine , with cardiac pulsations visualized under real-ti me ultrasound. M-mode heart rate measurement could not be performed, possibly due to the small pole. A follow-up ultrasound is recommended in 7-10 days to ensure viability. 2. Calculated gestational age: 6 weeks, 0 days. Estimated due date by ultrasound: 08/05/2023.
--- NOTE | 2022-12-13 13:10 | EDPHYS ---
Physician Documentation [facility] Name: Rhoda Hunter Age: 27 yrs Sex: Female : 1995 Arrival Date: 12/13/2022 Time: 09:56 Bed 5 Private MD: ED Physician Javier Taylor HPI: 12/13 11:40 This 27 yrs old Female presents to ER via Ambulatory with complaints of aura Vomiting/Diarrhea. 11:40 The patient presents to the emergency department with nausea, vomiting, diarrhea, that aura is continuous. Onset: The symptoms/episode began/occurred 3 day(s) ago. Possible causes: unknown, . The symptoms are aggravated by food , The symptoms are alleviated by nothing. remaining still. Severity of symptoms: At their worst the symptoms were moderate in the emergency department the symptoms have improved mildly. The patient has experienced similar episodes in the past, a few times. 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 - Social history:: Smoking status: Patient denies any tobacco usage or history of. ROS: 11:41 Constitutional: Negative for fever, chills, and weight loss, Eyes: Negative for injury, aura pain, redness, and discharge, ENT: Negative for injury, pain, and discharge, Neck: Negative for injury, pain, and swelling, Cardiovascular: Negative for chest pain, palpitations, and edema, Respiratory: Negative for shortness of breath, cough, wheezing, and pleuritic chest pain, Back: Negative for injury and pain, : Negative for injury, bleeding, discharge, and swelling, MS/Extremity: Negative for injury and deformity, Skin: Negative for injury, rash, and discoloration, Neuro: Negative for headache, weakness, numbness, tingling, and seizure, Psych: Negative for depression, anxiety, suicide ideation, homicidal ideation, and hallucinations, Allergy/Immunology: Negative for hives, rash, and allergies, Endocrine: Negative for neck swelling, polydipsia, polyuria, polyphagia, and marked weight changes, Hematologic/Lymphatic: Negative for swollen nodes, abnormal bleeding, and unusual bruising. 11:41 Abdomen/GI: Positive for abdominal pain, nausea and vomiting, nausea, vomiting, and diarrhea, diarrhea. Exam: 11:41 Constitutional: This is a well developed, well nourished patient who is awake, alert, aura and in no acute distress. Head/Face: Normocephalic, atraumatic. Eyes: Pupils equal round and reactive to light, extra-ocular motions intact. Lids and lashes normal. Conjunctiva and sclera are non-icteric and not injected. Cornea within normal limits. Periorbital areas with no swelling, redness, or edema. ENT: Nares patent. No nasal discharge, no septal abnormalities noted. Tympanic membranes are normal and external auditory canals are clear. Oropharynx with no redness, swelling, or masses, exudates, or evidence of obstruction, uvula midline. Mucous membranes moist. Neck: Trachea midline, no thyromegaly or masses palpated, and no cervical lymphadenopathy. Supple, full range of motion without nuchal rigidity, or vertebral point tenderness. No Meningismus. Chest/axilla: Normal chest wall appearance and motion. Nontender with no deformity. No lesions are appreciated. Cardiovascular: Regular rate and rhythm with a normal S1 and S2. No gallops, murmurs, or rubs. Normal PMI, no JVD. No pulse deficits. Respiratory: Lungs have equal breath sounds bilaterally, clear to auscultation and percussion. No rales, rhonchi or wheezes noted. No increased work of breathing, no retractions or nasal flaring. Abdomen/GI: Soft, non-tender, with normal bowel sounds. No distension or tympany. No guarding or rebound. No evidence of tenderness throughout. Back: No spinal tenderness. No costovertebral tenderness. Full range of motion. Skin: Warm, dry with normal turgor. Normal color with no rashes, no lesions, and no evidence of cellulitis. MS/ Extremity: Pulses equal, no cyanosis. Neurovascular intact. Full, normal range of motion. Neuro: Awake and alert, GCS 15, oriented to person, place, time, and situation. Cranial nerves II-XII grossly intact. Motor strength 5/5 in all extremities. Sensory grossly intact. Cerebellar exam normal. Normal gait. Psych: Awake, alert, with orientation to person, place and time. Behavior, mood, and affect are within normal limits. 11:41 Musculoskeletal/extremity: DVT Exam: No signs of deep vein thrombosis. no pain, no swelling, no tenderness, negative Homans' sign noted on exam, no appreciated bluish discoloration, no erythema, no increased warmth. Vital Signs: 10:03 BP 136 / 82; Pulse 16; Resp 21; Pulse Ox 100% on R/A; Weight 83.91 kg; Height 5 ft. 3 hb in. (160.02 cm); Pain 0/10; 11:12 BP 123 / 74; Pulse 50; Resp 17; Pulse Ox 100% ; kr3 12:17 BP 124 / 72; Pulse 58; Resp 18; Pulse Ox 100% on R/A; kr3 14:16 BP 108 / 61; Pulse 51; Resp 17; Pulse Ox 100% ; ll1 10:03 Body Mass Index 32.77 (83.91 kg, 160.02 cm) hb MDM: 09:56 Patient medically screened. [facility] 11:42 Differential diagnosis: Nonspecific abd pain, gastritis, viral gastroenteritis, aura gastroenteritis. Data reviewed: vital signs, EMS record, lab test result(s), radiologic studies, ultrasound. Consideration of Admission/Observation Escalation of care including admission/observation considered. I considered the following discharge prescriptions or medication management in the emergency department Medications were administered in the Emergency Department. See MAR. Test considered but Not performed: X-ray: NO CHEST X RAY. Historians other than the Patient: Spouse/Significant Other: . Care significantly affected by the following chronic conditions: PCOS. Counseling: I had a detailed discussion with the patient and/or guardian regarding: the historical points, exam findings, and any diagnostic results supporting the discharge/admit diagnosis, lab results, radiology results, the need for outpatient follow up, for definitive care, an OB/Gyne specialist. 12/13 09:58 Order name: CBC with Diff; Complete Time: 11:08 aura 12/13 09:58 Order name: CMP; Complete Time: 12:43 aura 12/13 09:58 Order name: Lipase; Complete Time: 12:43 aura 12/13 09:58 Order name: Urine Microscopic Only; Complete Time: 11:08 aura 12/13 10:42 Order name: Urine Dipstick-Ancillary; Complete Time: 11: EDMS 12/13 10:49 Order name: Urine --Ancillary (enter results); Complete Time: 12:43 eb 12/13 11:15 Order name: Abo/rh Typing; Complete Time: 12:43 aura 12/13 11:15 Order name: Quantitative Hcg; Complete Time: 12:43 aura 12/13 11:15 Order name: US Transvaginal Ob; Complete Time: 12:43 aura 12/13 09:58 Order name: IV Saline Lock; Complete Time: 10:54 aura 12/13 09:58 Order name: Labs collected and sent; Complete Time: 10:54 aura 12/13 09:58 Order name: Urine Dipstick-Ancillary (obtain specimen); Complete Time: 10:54 aura 12/13 09:58 Order name: Urine Test (obtain specimen); Complete Time: 10:54 [facility] Administered Medications: 11:05 Drug: NS 0.9% 1000 ml Route: IV; Rate: 1 bolus; Site: right antecubital; kr3 14:18 Follow up: Response: No adverse reaction; IV Status: Completed infusion; IV Intake: ll1 1000ml 11:06 Drug: Pepcid (famotidine) 20 mg Route: IVP; Site: right antecubital; kr3 14:18 Follow up: Response: No adverse reaction ll1 11:06 Drug: Zofran (Ondansetron) 4 mg Route: IVP; Site: right antecubital; kr3 14:18 Follow up: Response: No adverse reaction ll1 12:40 Drug: NS 0.9% 1000 ml Route: IV; Rate: 1 bolus; Site: right antecubital; kr3 14:17 Follow up: Response: No adverse reaction; IV Status: Completed infusion; IV Intake: ll1 1000ml 13:36 Drug: Potassium Effervescent Tablet 25 mEq Route: PO; kr3 14:17 Follow up: Response: No adverse reaction ll1 Disposition Summary: 12/13/22 13:09 Discharge Ordered Location: Home aura Problem: new aura Symptoms: have improved aura Condition: Stable aura Diagnosis - Mild hyperemesis gravidarum aura - Encounter for supervision of normal first , first trimester aura - Other vomiting complicating aura - Diarrhea, unspecified aura - Hypokalemia aura Followup: aura - With: Private Physician - When: 2 - 3 days - Reason: Recheck today's complaints, Continuance of care, Re-evaluation by your physician Followup: aura - With: - When: 2 - 3 days - Reason: Recheck today's complaints, Continuance of care, Re-evaluation by your physician Discharge Instructions: - Discharge Summary Sheet aura - Food Choices to Help Relieve Diarrhea, Adult aura - Hyperemesis Gravidarum aura - Morning Sickness, [id number] aura - Nausea and Vomiting, Adult aura - Care aura - Morning Sickness aura - First Trimester of , [id number] aura - Nausea and Vomiting, Adult, [id number] aura - First Trimester of aura - Nausea, Adult, [id number] [facility] Forms: - Medication Reconciliation Form aura - Thank You Letter aura - Antibiotic Education aura - Prescription Opioid Use aura - Work release form ll1 Prescriptions: - Zofran 4 mg Oral Tablet - take 1 tablet by ORAL route every 12 hours As needed; 30 tablet; Refills: 0, [facility] Product Selection Permitted - promethazine 25 mg Oral Tablet - take 1 tablet by ORAL route every 6 hours As needed; 20 tablet; Refills: 0, aura Product Selection Permitted Signatures: Dispatcher [employer] EDJavier Salvador MD MD cha Baxter, Heather, RN RN Grace Lund RN RN [id number] Anthony Silva RN ll1
--- NOTE | 2022-12-13 13:10 | ER ---
Nurse's Notes [facility] Name: Rhoda Hunter Age: 27 yrs Sex: Female : 1995 Arrival Date: 12/13/2022 Time: 09:56 Bed 5 Private MD: Diagnosis: Mild hyperemesis gravidarum;Encounter for supervision of normal first , first trimester;Other vomiting complicating ;Diarrhea, unspecified;Hypokalemia Presentation: 12/13 10:03 Chief complaint: N/V/D and chills x 3 days, also reports positive test. hb Coronavirus screen: At this time, the client does not indicate any symptoms associated with coronavirus-19. Ebola Screen: No symptoms or risks identified at this time. Initial Sepsis Screen: Does the patient meet any 2 criteria? No. Patient's initial sepsis screen is negative. Does the patient have a suspected source of infection? No. Patient's initial sepsis screen is negative. Risk Assessment: Do you want to hurt yourself or someone else? Patient reports no desire to harm self or others. Onset of symptoms was December 10, 2022. 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 - Social history:: Smoking status: Patient denies any tobacco usage or history of. Screenin:15 [facility] ED Fall Risk Assessment (Adult) History of falling in the last 3 months, kr3 including since admission No falls in past 3 months (0 pts) Confusion or Disorientation No (0 pts) Intoxicated or Sedated No (0 pts) Impaired Gait No (0 pts) Mobility Assist Device Used No (0 pt) Altered Elimination No (0 pt). Abuse screen: Denies threats or abuse. Nutritional screening: No deficits noted. Tuberculosis screening: No symptoms or risk factors identified. Assessment: 10:40 General: Appears in no apparent distress. comfortable, Behavior is calm, cooperative, kr3 appropriate for age. Pain: Complains of pain in abdomen. Neuro: Level of Consciousness is awake, alert, obeys commands, Oriented to person, place, time, situation. Cardiovascular: Patient's skin is warm and dry. 10:40 Respiratory: Airway is patent Respiratory effort is even, unlabored, Respiratory kr3 pattern is regular, symmetrical. GI: Reports diarrhea, vomiting. : No signs and/or symptoms were reported regarding the genitourinary system. EENT: No signs and/or symptoms were reported regarding the EENT system. EENT: No signs and/or symptoms were reported regarding the EENT system. Derm: No signs and/or symptoms reported regarding the dermatologic system. Musculoskeletal: No signs and/or symptoms reported regarding the musculoskeletal system. 12:18 Reassessment: Patient appears in no apparent distress at this time. Patient and/or kr3 family updated on plan of care and expected duration. Pain level reassessed. Patient is alert, oriented x 3, equal unlabored respirations, skin warm/dry/pink. 14:16 Reassessment: No changes from previously documented assessment. Patient and/or family ll1 updated on plan of care and expected duration. Pain level reassessed. Patient is alert, oriented x 3, equal unlabored respirations, skin warm/dry/pink. Patient states feeling better. Patient states symptoms have improved. Vital Signs: 10:03 BP 136 / 82; Pulse 16; Resp 21; Pulse Ox 100% on R/A; Weight 83.91 kg; Height 5 ft. 3 hb in. (160.02 cm); Pain 0/10; 11:12 BP 123 / 74; Pulse 50; Resp 17; Pulse Ox 100% ; kr3 12:17 BP 124 / 72; Pulse 58; Resp 18; Pulse Ox 100% on R/A; kr3 14:16 BP 108 / 61; Pulse 51; Resp 17; Pulse Ox 100% ; ll1 10:03 Body Mass Index 32.77 (83.91 kg, 160.02 cm) hb ED Course: 09:56 Patient arrived in ED. rg4 09:56 Javier Taylor MD is Attending Physician. [facility] 10:04 Triage completed. hb 10:15 Arm band placed on right wrist. Patient placed in an exam room, on a stretcher. kr3 10:15 Bed in low position. Call light in reach. Side rails up X 1. kr3 10:30 Inserted saline lock: 20 gauge in right antecubital area, using aseptic technique. kr3 Blood collected. 10:32 Grace Lund, CAIN is Primary Nurse. kr3 12:12 US Transvaginal Ob In Process Unspecified. EDWA 13:09 Rashid Liriano MD is Referral Physician. [facility] 14:16 No provider procedures requiring assistance completed. IV discontinued, intact, ll1 bleeding controlled, No redness/swelling at site. Pressure dressing applied. Administered Medications: 11:05 Drug: NS 0.9% 1000 ml Route: IV; Rate: 1 bolus; Site: right antecubital; kr3 14:18 Follow up: Response: No adverse reaction; IV Status: Completed infusion; IV Intake: ll1 1000ml 11:06 Drug: Pepcid (famotidine) 20 mg Route: IVP; Site: right antecubital; kr3 14:18 Follow up: Response: No adverse reaction ll1 11:06 Drug: Zofran (Ondansetron) 4 mg Route: IVP; Site: right antecubital; kr3 14:18 Follow up: Response: No adverse reaction ll1 12:40 Drug: NS 0.9% 1000 ml Route: IV; Rate: 1 bolus; Site: right antecubital; kr3 14:17 Follow up: Response: No adverse reaction; IV Status: Completed infusion; IV Intake: ll1 1000ml 13:36 Drug: Potassium Effervescent Tablet 25 mEq Route: PO; kr3 14:17 Follow up: Response: No adverse reaction ll1 Medication: 14:17 VIS not applicable for this client. ll1 Intake: 14:17 IV: 1000ml; Total: 1000ml. ll1 14:18 IV: 1000ml; Total: 2000ml. ll1 Outcome: 13:09 Discharge ordered by . aura 14:17 Discharged to home via wheelchair. ll1 14:17 Condition: improved 14:17 Discharge instructions given to patient, family, Instructed on discharge instructions, follow up and referral plans. medication usage, Demonstrated understanding of instructions, follow-up care, medications, Prescriptions given X 2. 14:18 Patient left the ED. ll1 Signatures: Dispatcher [employer] EDWA Javier Taylor MD MD cha Baxter, Heather, RN RN hb Garcia, Rubi 4 Anthony Silva RN RN ll1 Grace Lund RN RN kr3 Corrections: (The following items were deleted from the chart) : General: Appears in no apparent distress. comfortable, Behavior is calm, kr3 cooperative, appropriate for age, kr3 11: Pain: Complains of pain in abdomen kr3 kr3 11: Neuro: Level of Consciousness is awake, alert, obeys commands, Oriented to kr3 person, place, time, situation, kr3 11: Cardiovascular: Patient's skin is warm and dry. kr3 kr3
[2022-12-13] MEDS ORDERED: POTASSIUM 25 MEQ EFFERV TAB ONE (13:31)
[2022-12-13 14:37] VITALS: O2SAT 100
[2022-12-13 14:47] VITALS: BP 108/61
== END 2022-12-13 14:18 | disposition home or self-care (01) ==
LOC: ER 09:53
DX: O21.0 Mild hyperemesis gravidarum (principal); O99.283 Endocrine, nutritional and metabolic diseases complicating pregnancy, third trimester; E87.6 Hypokalemia; O99.611 Diseases of the digestive system complicating pregnancy, first trimester; R19.7 Diarrhea, unspecified; Z88.0 Allergy status to penicillin; Z88.5 Allergy status to narcotic agent
CPT/HCPCS: 96361; 85025; 36415; 86900; 81025; 86901; 84702; 83690; 80053; 76817; 96375; 96374; 99284; J7030 ×2; J2405; 81003; 81015